=== PATIENT | male | born 1955 | race Caucasian/White ===

== ENCOUNTER 2016-11-15 07:26 | Outpatient (CLI) | payer OTHER | END 2016-11-15 23:59 | DX: I10 Essential (primary) hypertension (principal); M25.562 Pain in left knee; E78.5 Hyperlipidemia, unspecified; F52.21 Male erectile disorder ==

== ENCOUNTER 2017-03-01 07:15 | Outpatient (CLI) | payer OTHER ==
[2017-03-01 13:47] LABS: ALBUMIN/GLOBULIN RATIO 1.4 (1.0-2.2); BILIRUBIN,TOTAL 1.7 mg/dL (0.2-1.0); CALCIUM 8.8 mg/dL (8.5-10.3); CREATININE 0.9 mg/dL (0.6-1.2); POTASSIUM 3.8 mmol/L (3.5-5.0); TOTAL PROTEIN 7.3 g/dL (6.7-8.2)
[2017-03-01 14:20] LABS: HEMOGLOBIN A1C 0.92 g/dL
== END 2017-03-01 07:16 | disposition home or self-care (01) ==
LOC: LAB.WCP 07:15
PROVIDERS: ATTEND Family Medicine
DX: E11.9 Type 2 diabetes mellitus without complications (principal); I10 Essential (primary) hypertension; E78.5 Hyperlipidemia, unspecified; Z12.5 Encounter for screening for malignant neoplasm of prostate
CPT/HCPCS: 36415; 80053; 82043; 83036; 84153

== ENCOUNTER 2017-07-24 14:47 | Outpatient (CLI) | payer BC, OTHER ==
[2017-07-24 12:49] LABS: ALBUMIN/GLOBULIN RATIO 1.2 (1.0-2.2); BILIRUBIN,TOTAL 1.5 mg/dL (0.2-1.0); CALCIUM 9.5 mg/dL (8.5-10.3); CREATININE 0.9 mg/dL (0.6-1.2); POTASSIUM 4.5 mmol/L (3.5-5.0); TOTAL PROTEIN 8.2 g/dL (6.7-8.2)
[2017-07-24 12:56] LABS: HEMOGLOBIN A1C 0.81 g/dL
== END 2017-07-24 14:48 | disposition home or self-care (01) ==
LOC: LAB.WCP 14:47
PROVIDERS: ATTEND Family Medicine
DX: Z00.00 Encounter for general adult medical examination without abnormal findings (principal)
CPT/HCPCS: 36415; 80053; 83036

== ENCOUNTER 2017-10-23 07:27 | Outpatient (CLI) | payer BC, OTHER ==
[2017-10-23 13:56] LABS: ALBUMIN 4.5 g/dL (3.2-5.5); ALBUMIN/GLOBULIN RATIO 1.5 (1.0-2.2); ALKALINE PHOSPHATASE 73 IU/L (42-121); ALT ALANINE AMINOTRANSFERASE 41 IU/L (10-60); AST ASPARTATE AMINOTRANSFERASE 30 IU/L (10-42); BILIRUBIN,TOTAL 1.8 mg/dL (0.2-1.0); BUN - BLOOD UREA NITROGEN 22 mg/dL (6-20); CALCIUM 9.2 mg/dL (8.5-10.3); CARBON DIOXIDE - CO2 26 mmol/L (21-32); CHLORIDE 100 mmol/L (101-111); CHOL/HDL RATIO 5.1 (<5.0); CHOLESTEROL 169 mg/dL; CREATININE 0.8 mg/dL (0.6-1.2); GFR - MDRD 99 (>89); GLUCOSE 150 mg/dL (70-100); HDL CHOLESTEROL 33 mg/dL; SODIUM 137 mmol/L (135-145); TOTAL PROTEIN 7.6 g/dL (6.7-8.2)
[2017-10-23 14:14] LABS: LDL CHOLESTEROL,DIRECT 59 mg/dL; LDLD/HDL RATIO 1.8 (<3.6)
[2017-10-23 15:00] LABS: HB2 TOTAL 15.1 g/dL; HEMOGLOBIN A1C 0.8 g/dL
== END 2017-10-23 07:28 | disposition home or self-care (01) ==
LOC: LAB.WCP 07:27
PROVIDERS: ATTEND Family Medicine
DX: E11.9 Type 2 diabetes mellitus without complications (principal); I10 Essential (primary) hypertension; E78.5 Hyperlipidemia, unspecified; Z12.5 Encounter for screening for malignant neoplasm of prostate
CPT/HCPCS: 36415; 80053; 80061; 83036; 83721; 84153

== ENCOUNTER 2018-01-13 14:43 | Emergency (ER) | payer BC, OTHER ==
[2018-01-13] MEDS ORDERED: BUFFERED LIDOCAINE 10 ML SYRINGE SUBQ STA (14:52)
[2018-01-13] MEDS ORDERED: TETANUS/DIPHTHERIA/PERTUSSIS 0.5 ML SYRINGE IM ONE (14:54)
--- NOTE | 2018-01-13 14:56 | ED Physician Documentation ---
PD HPI UPPER EXT INJURY - Stated complaint Stated Complaint: R FINGER LAC - Chief complaint Chief Complaint: Wound - History obtained from History obtained from: Patient - History of Present Illness Location: Right (Right-handed gentleman with borderline tetanus status cut the tip of his right index finger with a duplex trimmer at home just prior to arrival.) Review of Systems Constitutional: reports: Reviewed and negative Cardiac: reports: Reviewed and negative Respiratory: reports: Reviewed and negative PD PAST MEDICAL HISTORY - Past Medical History Cardiovascular: Hypertension, High cholesterol - Past Surgical History Past Surgical History: Yes - Present Medications Home Medications: Ambulatory Orders Medication Instructions Recorded Confirmed Carvedilol 04/20/13 04/20/13 Rosuvastatin Calcium [Crestor] 04/20/13 04/20/13 metFORMIN [Glucophage] 01/13/18 - Allergies Allergies/Adverse Reactions: Allergies Allergy/AdvReac Type Severity Reaction Status Date / Time No Known Drug Allergies Allergy Verified 04/20/13 11:34 - Social History Does the pt smoke?: Yes Smoking Status: Current every day smoker Does the pt drink ETOH?: Yes Does the pt have substance abuse?: No - Immunizations Immunizations are current?: No Immunizations: TDAP >10years/unknown - POLST Patient has POLST: No PD ED PE NORMAL - Vitals Vital signs reviewed: Yes - General General: Alert and oriented X 3, No acute distress - Extremities Extremities: Other (He basically has a 1 cm flap of skin that is hanging at the tip of the index finger with some nailbed involvement.) - Neuro Neuro: Alert and oriented X 3, Normal speech - Psych Psych: Normal mood, Normal affect Results - Vitals Vitals: Vital Signs - 24 hr 01/13/18 14:46 Temperature 36.7 C Heart Rate 107 H Respiratory 18 Rate Blood Pressure 127/93 H O2 Saturation 95 Oxygen O2 Source Room air Procedures - Laceration (location) R 2nd finger tip Length in cm: 1 Wound type: Curved, Flap Neurovascular status: Sensory intact, Motor intact, Vascular intact Anesthesia: Lidocaine 1%, With bicarb Wound Preparation: Hibiclens, Irrigated copiously NS Skin layer closure: Nylon, Size #-0 - enter number (5-0), Sutures - enter # (5) Other: Tetanus booster given Complexity: Simple Departure - Departure Disposition: 01 Home, Self Care Clinical Impression: Finger laceration Qualifiers: Encounter type: initial encounter Finger: index finger Damage to nail status: with damage Foreign body presence: without foreign body Laterality: right Qualified Code(s): S61.310A - Laceration without foreign body of right index finger with damage to nail, initial encounter Condition: Good Record reviewed to determine appropriate education?: Yes Instructions: ED Laceration Hand Comments: Come back for any signs of infection which would include: Redness, swelling, drainage, increased pain, or fevers. Follow-up with your physician in 14 days for suture removal. Your blood pressure was elevated today on check into the emergency department. This does not mean that you have hypertension, it is a common phenomenon to come to the emergency department and have elevated blood pressure. I recommend that you see your primary care physician within the week to have it rechecked when you are feeling better.
[2018-01-13 16:11] VITALS: BP 127/95
== END 2018-01-13 16:09 | disposition home or self-care (01) ==
LOC: ED 14:43
DX: S61.210A Laceration without foreign body of right index finger without damage to nail, initial encounter (principal); W29.3XXA Contact with powered garden and outdoor hand tools and machinery, initial encounter; Y92.009 Unspecified place in unspecified non-institutional (private) residence as the place of occurrence of the external cause; I10 Essential (primary) hypertension; Z23 Encounter for immunization; E78.00 Pure hypercholesterolemia, unspecified; F17.200 Nicotine dependence, unspecified, uncomplicated
CPT/HCPCS: 12001; 90471; 99282; 99283

== ENCOUNTER 2018-04-06 20:35 | Emergency (ER) | payer BC, OTHER ==
[2018-04-06] MEDS ORDERED: ceFAZolin 1 GM VIAL IM STA (20:54)
--- NOTE | 2018-04-06 20:58 | ED Physician Documentation ---
PD HPI LOWER EXT INJURY - Stated complaint Stated Complaint: RT LEG PX - Chief complaint Chief Complaint: Ext Problem - History obtained from History obtained from: Patient - History of Present Illness PD HPI LOW EXT INJURY LOCATION: Right (62-year-old gentleman with type 2 diabetes on oral medications presents with a days worth of pain to the anterior right puga with redness. The pain is only bad when he takes the first few steps walking and then it is okay. He has had chills last few nights and feeling febrile without measured fevers.) Review of Systems Constitutional: reports: Chills. denies: Fatigue Cardiac: denies: Chest pain / pressure, Palpitations Respiratory: denies: Dyspnea, Cough GI: denies: Abdominal Pain PD PAST MEDICAL HISTORY - Past Medical History Past Medical History: Yes Cardiovascular: Hypertension, High cholesterol Endocrine/Autoimmune: Type 2 diabetes - Past Surgical History Past Surgical History: No - Present Medications Home Medications: Ambulatory Orders Medication Instructions Recorded Confirmed Carvedilol 04/20/13 04/20/13 Rosuvastatin Calcium [Crestor] 04/20/13 04/20/13 metFORMIN [Glucophage] 01/13/18 Cephalexin [Keflex] 500 mg PO QID #40 capsule 04/06/18 - Allergies Allergies/Adverse Reactions: Allergies Allergy/AdvReac Type Severity Reaction Status Date / Time No Known Drug Allergies Allergy Verified 04/06/18 20:43 - Social History Does the pt smoke?: Yes Smoking Status: Current every day smoker Does the pt drink ETOH?: Yes Does the pt have substance abuse?: No - Immunizations Immunizations are current?: No Immunizations: TDAP >10years/unknown - POLST Patient has POLST: No PD ED PE NORMAL - Vitals Vital signs reviewed: Yes - General General: Alert and oriented X 3, No acute distress - Extremities Extremities: Other (He has cellulitis to the anterior right puga measuring about 8 cm x 3 cm with tenderness but no evidence of gas-forming infection, specifically pain is not out of proportion to examination, he is comfortable at rest, there is no crepitance. And he does walk without overt evidence of pain.) - Neuro Neuro: Alert and oriented X 3, Normal speech Results - Vitals Vitals: Vital Signs - 24 hr 04/06/18 20:37 Temperature 36.8 C Heart Rate 114 H Respiratory 18 Rate Blood Pressure 156/98 H O2 Saturation 95 Oxygen O2 Source Room air - Labs Labs: Laboratory Tests 04/06/18 20:42 POC Whole Bld Glucose 260 H PD MEDICAL DECISION MAKING - ED course ED course: 62-year-old gentleman with right leg cellulitis. He is administered 2 g of Ancef in the department and sent home with prescription for Keflex and given signs and symptoms watch out and return for. - Sepsis Event Vital Signs: Vital Signs - 24 hr 04/06/18 20:37 Temperature 36.8 C Heart Rate 114 H Respiratory 18 Rate Blood Pressure 156/98 H O2 Saturation 95 Oxygen O2 Source Room air Departure - Departure Disposition: Home, Self Care Clinical Impression: Cellulitis Qualifiers: Site of cellulitis: extremity Site of cellulitis of extremity: lower extremity Laterality: right Qualified Code(s): L03.115 - Cellulitis of right lower limb Condition: Good Record reviewed to determine appropriate education?: Yes Instructions: Cellulitis Dc Prescriptions: Cephalexin [Keflex] 500 mg PO QID #40 capsule Comments: Return immediately if the redness worsens or if the chills do not go away shortly after the injection of antibiotics. Or if you generally worsen in any way. Follow-up with your doctor early to mid week for recheck otherwise. Your blood pressure was elevated today on check into the emergency department. This does not mean that you have hypertension, it is a common phenomenon to come to the emergency department and have elevated blood pressure. I recommend that you see your primary care physician within the week to have it rechecked when you are feeling better.
[2018-04-06 21:26] VITALS: BP 146/93
== END 2018-04-06 21:31 | disposition home or self-care (01) ==
LOC: ED 20:35
DX: L03.115 Cellulitis of right lower limb (principal); I10 Essential (primary) hypertension; E11.9 Type 2 diabetes mellitus without complications; Z79.84 Long term (current) use of oral hypoglycemic drugs; F17.200 Nicotine dependence, unspecified, uncomplicated
CPT/HCPCS: 96372; 99283

== ENCOUNTER 2019-03-10 08:05 | Outpatient (CLI) | payer BC, OTHER ==
[2019-03-10 11:59] LABS: BASOPHILS % (AUTO) 0.8 %; EOSINOPHILS # (AUTO) 0.2 10^3/uL (0.0-0.7); EOSINOPHILS % (AUTO) 3.5 %; HGB - HEMOGLOBIN 14.4 g/dL (14.0-18.0); LYMPHOCYTES # (AUTO) 1.6 10^3/uL (1.5-3.5); LYMPHOCYTES % (AUTO) 30.3 %; MEAN CORPUSCULAR HEMOGLOBIN 29.5 pg (27.0-31.0); MEAN CORPUSCULAR HGB CONC 33.5 g/dL (32.0-36.0); MEAN CORPUSCULAR VOLUME 88.1 fL (80.0-94.0); MEAN PLATELET VOLUME 10.4 fL (7.4-11.4); MONOCYTES # (AUTO) 0.4 10^3/uL (0.0-1.0); MONOCYTES % (AUTO) 7.5 %; NEUTROPHILS % (AUTO) 57.7 %; PLT - PLATELET COUNT 266 10^3/uL (130-450); RED BLOOD COUNT 4.88 10^6/uL (4.70-6.10); RED CELL DISTRIBUTION WIDTH 12.1 % (12.0-15.0); WHITE BLOOD COUNT 5.2 x10^3/uL (4.8-10.8)
[2019-03-10 12:26] LABS: CREATININE,URINE 151.9 mg/dL; MICROALBUM/CREATININE RATIO,UR 120.5 ug/mg (<30.0); MICROALBUMIN,URINE 18.3 mg/dL (0-300.0)
[2019-03-10 12:31] LABS: HB2 TOTAL 14.5 g/dL; HEMOGLOBIN A1C 2.08 g/dL; HEMOGLOBIN A1C % 15.3 % (4.6-6.2)
[2019-03-10 12:44] LABS: ALBUMIN 4.3 g/dL (3.2-5.5); ALBUMIN/GLOBULIN RATIO 1.3 (1.0-2.2); ALKALINE PHOSPHATASE 81 IU/L (42-121); ALT ALANINE AMINOTRANSFERASE 39 IU/L (10-60); AST ASPARTATE AMINOTRANSFERASE 29 IU/L (10-42); BILIRUBIN,TOTAL 2.5 mg/dL (0.2-1.0); BUN - BLOOD UREA NITROGEN 17 mg/dL (6-20); CALCIUM 9.5 mg/dL (8.5-10.3); CARBON DIOXIDE - CO2 27 mmol/L (21-32); CHLORIDE 95 mmol/L (101-111); CHOLESTEROL 148 mg/dL; CREATININE 0.8 mg/dL (0.6-1.2); GFR - MDRD 98 (>89); GLUCOSE 299 mg/dL (70-100); HDL CHOLESTEROL 37 mg/dL; LDL CHOLESTEROL,CALCULATED 55 mg/dL; LDL/HDL RATIO 1.5 (<3.6); SODIUM 135 mmol/L (135-145); TOTAL PROTEIN 7.7 g/dL (6.7-8.2); VLDL CHOLESTEROL 56 mg/dL
== END 2019-03-10 08:06 | disposition home or self-care (01) ==
LOC: LAB.WCP 08:05
PROVIDERS: ATTEND Physician Assistant Medical
DX: I10 Essential (primary) hypertension (principal); E78.5 Hyperlipidemia, unspecified; E11.9 Type 2 diabetes mellitus without complications; Z12.5 Encounter for screening for malignant neoplasm of prostate
CPT/HCPCS: 36415; 80053; 80061; 82043; 82570; 83036; 83721; 84153; 84443; 85025

== ENCOUNTER 2019-04-07 07:33 | Outpatient (CLI) | payer BC, OTHER ==
[2019-04-07 12:33] LABS: ALBUMIN 4.4 g/dL (3.2-5.5); ALBUMIN/GLOBULIN RATIO 1.3 (1.0-2.2); BILIRUBIN,TOTAL 1.8 mg/dL (0.2-1.0); CREATININE 0.8 mg/dL (0.6-1.2); TOTAL PROTEIN 7.8 g/dL (6.7-8.2)
== END 2019-04-07 23:59 | disposition home or self-care (01) ==
LOC: LAB.WCP 07:33
PROVIDERS: ATTEND Physician Assistant
DX: I10 Essential (primary) hypertension (principal)
CPT/HCPCS: 36415; 80053

== ENCOUNTER 2019-05-06 09:44 | Outpatient (CLI) | payer BC, OTHER ==
[2019-05-06 12:54] LABS: CALCIUM 9.6 mg/dL (8.5-10.3); CREATININE 0.8 mg/dL (0.6-1.2)
[2019-05-06 13:05] LABS: HB2 TOTAL 14.3 g/dL; HEMOGLOBIN A1C 1.35 g/dL; HEMOGLOBIN A1C % 10.8 % (4.6-6.2)
== END 2019-05-06 23:59 | disposition home or self-care (01) ==
LOC: LAB.WCP 09:44
PROVIDERS: ATTEND Family Medicine
DX: E11.9 Type 2 diabetes mellitus without complications (principal)
CPT/HCPCS: 36415; 80048; 83036

== ENCOUNTER 2019-08-04 08:00 | Outpatient (CLI) | payer BC, OTHER ==
[2019-08-04 12:43] LABS: MICROALBUM/CREATININE RATIO,UR 127.2 ug/mg (<30.0); MICROALBUMIN,URINE 28.5 mg/dL (0-300.0)
[2019-08-04 12:48] LABS: HEMOGLOBIN A1C 0.69 g/dL; HEMOGLOBIN A1C % 6.7 % (4.6-6.2)
[2019-08-04 12:55] LABS: ALBUMIN 4.5 g/dL (3.2-5.5); ALBUMIN/GLOBULIN RATIO 1.4 (1.0-2.2); BILIRUBIN,TOTAL 1.4 mg/dL (0.2-1.0); CALCIUM 9.5 mg/dL (8.5-10.3); TOTAL PROTEIN 7.7 g/dL (6.7-8.2)
== END 2019-08-04 23:59 | disposition home or self-care (01) ==
LOC: LAB.WCP 08:00
PROVIDERS: ATTEND Family Medicine
DX: E11.9 Type 2 diabetes mellitus without complications (principal); I10 Essential (primary) hypertension
CPT/HCPCS: 36415; 80053; 82043; 82570; 83036

== ENCOUNTER 2019-10-13 05:48 | Day surgery (SDC) | payer OTHER ==
[2019-10-13] MEDS ORDERED: LACTATED RINGERS 1,000 ML IV ONE (06:15)
[2019-10-13] MEDS ORDERED: MIDAZOLAM 2 MG/2 ML VIAL IVP ONE ×2 (07:37→08:28)
[2019-10-13] MEDS ORDERED: fentaNYL 250 MCG/5 ML VIAL IVP ONE ×2 (07:37→08:28)
[2019-10-13 08:35] VITALS: BP 115/74
== END 2019-10-13 05:49 | disposition home or self-care (01) ==
LOC: SDS 05:48
PROVIDERS: ATTEND Internal Medicine Gastroenterology
PROC: 0DBN8ZZ Excision of Sigmoid Colon, Via Natural or Artificial Opening Endoscopic (ICD-10-PCS; principal; 2019-10-13 07:30)
DX: Z12.11 Encounter for screening for malignant neoplasm of colon (principal); K63.9 Disease of intestine, unspecified; K57.30 Diverticulosis of large intestine without perforation or abscess without bleeding; Z01.810 Encounter for preprocedural cardiovascular examination; E11.40 Type 2 diabetes mellitus with diabetic neuropathy, unspecified; I10 Essential (primary) hypertension; M17.12 Unilateral primary osteoarthritis, left knee; F43.21 Adjustment disorder with depressed mood; Z79.84 Long term (current) use of oral hypoglycemic drugs; Z79.82 Long term (current) use of aspirin
CPT/HCPCS: 45380; 93005; J3010; J7120

== ENCOUNTER 2019-12-05 08:00 | Outpatient (CLI) | payer OTHER ==
[2019-12-05 16:58] LABS: CALCIUM 9.7 mg/dL (8.5-10.3); CREATININE 0.9 mg/dL (0.6-1.2)
[2019-12-05 17:11] LABS: HB2 TOTAL 15.1 g/dL; HEMOGLOBIN A1C 0.72 g/dL; HEMOGLOBIN A1C % 6.5 % (4.6-6.2)
== END 2019-12-05 23:59 | disposition home or self-care (01) ==
LOC: LAB.WCP 08:00
PROVIDERS: ATTEND Physician Assistant Medical
DX: E11.21 Type 2 diabetes mellitus with diabetic nephropathy (principal); I10 Essential (primary) hypertension; E78.5 Hyperlipidemia, unspecified
CPT/HCPCS: 36415; 80048; 82043; 82570; 83036

== ENCOUNTER 2019-12-16 09:52 | Outpatient (CLI) | payer OTHER ==
[2019-12-16 12:43] LABS: CREATININE,URINE 84.5 mg/dL; MICROALBUM/CREATININE RATIO,UR 47.3 ug/mg (<30.0)
== END 2019-12-16 23:59 | disposition home or self-care (01) ==
LOC: LAB.WCP 09:52
PROVIDERS: ATTEND Physician Assistant Medical
DX: E11.21 Type 2 diabetes mellitus with diabetic nephropathy (principal); I10 Essential (primary) hypertension; E78.5 Hyperlipidemia, unspecified
CPT/HCPCS: 82043; 82570

== ENCOUNTER 2020-09-11 10:43 | Outpatient (CLI) | payer OTHER ==
[2020-09-11 13:47] LABS: BASOPHILS # (AUTO) 0.1 10^3/uL (0.0-0.1); EOSINOPHILS # (AUTO) 0.3 10^3/uL (0.0-0.7); EOSINOPHILS % (AUTO) 4.3 %; HGB - HEMOGLOBIN 13.9 g/dL (14.0-18.0); LYMPHOCYTES # (AUTO) 1.6 10^3/uL (1.5-3.5); MEAN CORPUSCULAR HEMOGLOBIN 29.1 pg (27.0-31.0); MEAN CORPUSCULAR HGB CONC 33.2 g/dL (32.0-36.0); MEAN CORPUSCULAR VOLUME 87.7 fL (80.0-94.0); MEAN PLATELET VOLUME 10.7 fL (7.4-11.4); MONOCYTES # (AUTO) 0.6 10^3/uL (0.0-1.0); MONOCYTES % (AUTO) 9.5 %; NEUTROPHILS # (AUTO) 3.7 10^3/uL (1.5-6.6); PLT - PLATELET COUNT 311 10^3/uL (130-450); RED BLOOD COUNT 4.78 10^6/uL (4.70-6.10); RED CELL DISTRIBUTION WIDTH 12.6 % (12.0-15.0); WHITE BLOOD COUNT 6.3 x10^3/uL (4.8-10.8)
[2020-09-11 13:59] LABS: ALBUMIN 4.5 g/dL (3.2-5.5); ALBUMIN/GLOBULIN RATIO 1.3 (1.0-2.2); ALKALINE PHOSPHATASE 106 IU/L (42-121); ALT ALANINE AMINOTRANSFERASE 48 IU/L (10-60); AST ASPARTATE AMINOTRANSFERASE 34 IU/L (10-42); BILIRUBIN,TOTAL 1.6 mg/dL (0.2-1.0); BUN - BLOOD UREA NITROGEN 18 mg/dL (6-20); CALCIUM 9.5 mg/dL (8.5-10.3); CARBON DIOXIDE - CO2 28 mmol/L (21-32); CHLORIDE 97 mmol/L (101-111); CHOL/HDL RATIO 4.9 (<5.0); CHOLESTEROL 173 mg/dL; CREATININE 0.9 mg/dL (0.6-1.2); GLUCOSE 216 mg/dL (70-100); HDL CHOLESTEROL 35 mg/dL; SODIUM 136 mmol/L (135-145); TOTAL PROTEIN 8.1 g/dL (6.7-8.2)
[2020-09-11 14:03] LABS: CREATININE,URINE 177.8 mg/dL; MICROALBUM/CREATININE RATIO,UR 91.7 ug/mg (<30.0); MICROALBUMIN,URINE 16.3 mg/dL (0-300.0)
[2020-09-11 14:18] LABS: LDL CHOLESTEROL,DIRECT 57 mg/dL; LDLD/HDL RATIO 1.6 (<3.6)
[2020-09-11 20:10] LABS: HEMOGLOBIN A1c% 8.5 % (4.27-6.07)
== END 2020-09-11 10:44 | disposition home or self-care (01) ==
LOC: LAB.N 10:43
PROVIDERS: ATTEND Family Medicine
DX: E11.9 Type 2 diabetes mellitus without complications (principal); I10 Essential (primary) hypertension; E78.5 Hyperlipidemia, unspecified; Z12.5 Encounter for screening for malignant neoplasm of prostate
CPT/HCPCS: 36415; 80053; 80061; 82043; 82570; 83036; 83721; 84153; 84443; 85025

== ENCOUNTER 2020-12-04 12:50 | Emergency (ER) | payer OTHER ==
[2020-12-04] MEDS ORDERED: ONDANSETRON 4 MG/2 ML VIAL IVP STA (13:27)
[2020-12-04] MEDS ORDERED: KETOROLAC 30 MG/ML VIAL IVP STA (13:27)
[2020-12-04] MEDS ORDERED: MORPHINE 2 MG/ML CARPUJECT IVP STA (13:27)
[2020-12-04 13:32] LABS: BASOPHILS % (AUTO) 0.4 %; EOSINOPHILS # (AUTO) 0.2 10^3/uL (0.0-0.7); EOSINOPHILS % (AUTO) 2.1 %; HCT - HEMATOCRIT 41.9 % (42.0-52.0); HGB - HEMOGLOBIN 14.3 g/dL (14.0-18.0); LYMPHOCYTES # (AUTO) 2.3 10^3/uL (1.5-3.5); LYMPHOCYTES % (AUTO) 27.6 %; MEAN CORPUSCULAR HEMOGLOBIN 29.1 pg (27.0-31.0); MEAN CORPUSCULAR HGB CONC 34.1 g/dL (32.0-36.0); MEAN CORPUSCULAR VOLUME 85.3 fL (80.0-94.0); MEAN PLATELET VOLUME 10.4 fL (7.4-11.4); MONOCYTES # (AUTO) 0.7 10^3/uL (0.0-1.0); MONOCYTES % (AUTO) 8.2 %; NEUTROPHILS # (AUTO) 5.1 10^3/uL (1.5-6.6); NEUTROPHILS % (AUTO) 61.6 %; PLT - PLATELET COUNT 321 10^3/uL (130-450); RED BLOOD COUNT 4.91 10^6/uL (4.70-6.10); RED CELL DISTRIBUTION WIDTH 12.9 % (12.0-15.0); WHITE BLOOD COUNT 8.2 x10^3/uL (4.8-10.8)
[2020-12-04] MEDS ORDERED: IOPAMIDOL-300 100 ML VIAL ONE (13:32)
[2020-12-04 13:35] LABS: ALBUMIN 4.5 g/dL (3.2-5.5); ALBUMIN/GLOBULIN RATIO 1.3 (1.0-2.2); BILIRUBIN,TOTAL 2.5 mg/dL (0.2-1.0); CREATININE 1.1 mg/dL (0.6-1.2); POTASSIUM 3.9 mmol/L (3.5-5.0)
--- NOTE | 2020-12-04 13:58 | ED Physician Documentation ---
PD HPI ABD PAIN - Stated complaint Stated Complaint: ABD PX - Chief complaint Chief Complaint: Abd Pain - History obtained from History obtained from: Patient - History of Present Illness Timing - onset: How many days ago (2) Timing - duration: Days (2) Timing - details: Gradual onset, Waxing and waning Pain level max: 9 Pain level now: 9 Quality: Aching, Sharp Associated symptoms: Nausea, Vomiting. No: Fever, Hematemesis, Diarrhea, Constipation, Melena, Hematochezia, Dysuria, Hematuria Recently seen: Not recently seen - Additional information Additional information: 64-year-old male presents to the emergency department with abdominal pain for the past 2 days. States it is in the left lower quadrant. Rates it as a 9 out of 10. Described as aching and sharp. Nothing makes it better or worse. No fevers. Has had nausea and vomiting secondary to pain. No blood in the stool. No diarrhea. No constipation. Has never had similar symptoms previously. No urinary symptoms. Review of Systems Constitutional: denies: Fever, Chills Respiratory: denies: Cough GI: reports: Vomiting Skin: denies: Rash Musculoskeletal: denies: Neck pain, Back pain Neurologic: denies: Headache PD PAST MEDICAL HISTORY - Past Medical History Past Medical History: Yes Cardiovascular: Hypertension, High cholesterol Respiratory: None Endocrine/Autoimmune: Type 2 diabetes GI: Other : None HEENT: None Psych: None Musculoskeletal: Osteoarthritis Derm: None - Past Surgical History Past Surgical History: Yes General: Colonoscopy - Present Medications Home Medications: Ambulatory Orders Medication Instructions Recorded Confirmed Rosuvastatin Calcium [Crestor] 40 mg PO DAILY 04/20/13 12/04/20 metFORMIN [Glucophage] 1,500 mg PO DAILY 01/13/18 12/04/20 Exenatide Microspheres [Bydureon 2 mg SQ OAW 10/13/19 12/04/20 Pen] Ibuprofen [Motrin] 800 mg PO Q8H PRN #30 tablet 12/04/20 Ondansetron Odt [Zofran] 4 mg TL Q6H PRN #10 tablet 12/04/20 Oxycodone HCl/Acetaminophen 1 - 2 each PO Q6H PRN #14 tablet 12/04/20 [Percocet 5-325 mg Tablet] - Allergies Allergies/Adverse Reactions: Allergies Allergy/AdvReac Type Severity Reaction Status Date / Time No Known Drug Allergies Allergy Verified 12/04/20 12:55 - Social History Does the pt smoke?: No Smoking Status: Never smoker Does the pt drink ETOH?: No Does the pt have substance abuse?: No - Immunizations Immunizations are current?: Yes Immunizations: TDAP >10years/unknown - POLST Patient has POLST: No PD ED PE NORMAL - Vitals Vital signs reviewed: Yes - General General: Alert and oriented X 3, No acute distress - HEENT HEENT: Moist mucous membranes - Neck Neck: Supple, no meningeal sign - Cardiac Cardiac: RRR - Respiratory Respiratory: No respiratory distress, Clear bilaterally - Abdomen Abdomen: Soft, Non tender, Non distended - Back Back: No CVA TTP, No spinal TTP - Derm Derm: Warm and dry - Extremities Extremities: No edema, No calf tenderness / cord - Neuro Neuro: Alert and oriented X 3 - Psych Psych: Normal mood, Normal affect Results - Vitals Vitals: Vital Signs - 24 hr 12/04/20 12/04/20 12/04/20 12:55 13:19 13:43 Temperature 36.5 C Heart Rate 90 103 H 101 H Respiratory 16 18 22 Rate Blood Pressure 150/90 H 125/89 H 154/106 H O2 Saturation 96 95 99 12/04/20 12/04/20 14:19 15:59 Temperature 36.4 C L Heart Rate 99 114 H Respiratory 16 16 Rate Blood Pressure 144/78 H 120/91 H O2 Saturation 98 94 Oxygen O2 Source Room air - Labs Labs: Laboratory Tests 12/04/20 12/04/20 12/04/20 13:10 13:10 15:05 WBC 8.2 RBC 4.91 Hgb 14.3 Hct 41.9 L MCV 85.3 MCH 29.1 MCHC 34.1 RDW 12.9 Plt Count 321 MPV 10.4 Neut # (Auto) 5.1 Lymph # (Auto) 2.3 [place] # (Auto) 0.7 Eos # (Auto) 0.2 Baso # (Auto) 0.0 Absolute Nucleated RBC 0.00 Nucleated RBC % 0.0 Sodium 135 Potassium 3.9 Chloride 97 L Carbon Dioxide 25 Anion Gap 13.0 BUN 29 H Creatinine 1.1 Estimated GFR (MDRD) 68 L Glucose 291 H Calcium 10.0 Total Bilirubin 2.5 H AST 32 ALT 43 Alkaline Phosphatase 92 Total Protein 8.0 Albumin 4.5 Globulin 3.5 Albumin/Globulin Ratio 1.3 Lipase 40 Urine Color YELLOW Urine Clarity HAZY Urine pH 6.0 Ur Specific [place] 1.020 Urine Protein 30 H Urine Glucose (UA) 500 H Urine Ketones 15 H Urine Occult Blood LARGE H Urine Nitrite NEGATIVE Urine Bilirubin NEGATIVE Urine Urobilinogen 0.2 (NORMAL) Ur Leukocyte Esterase NEGATIVE Urine RBC TNTC H Urine WBC 0-3 Ur Squamous Epith Cells RARE Squamous Urine Bacteria Rare Urine Mucus Few Strands Ur Microscopic Review INDICATED Urine Culture Comments NOT INDICATED - Rads (name of study) CT abd/pelvis Radiology: Prelim report reviewed, EMP read contemporaneously, See rad report PD MEDICAL DECISION MAKING - ED course Complexity details: reviewed results, re-evaluated patient, considered differential, d/w patient ED course: 64-year-old male with a 3 mm obstructing stone at the left UVJ. Pain well controlled in the emergency department. No evidence of UTI. No fevers. Tolerating p.o. without difficulty. Will provide supportive care and have him follow-up with his doctor. Patient counseled regarding signs and symptoms for which I believe and urgent re-evaluation would be necessary. Patient with good understanding of and agreement to plan and is comfortable going home at this time This document was made in part using voice recognition software. While efforts are made to proofread this document, sound alike and grammatical errors may occur. CT scan results: 3 mm obstructing stone at the left ureterovesicular junction, with associated left-sided hydronephrosis and hydroureter. 1 mm nonobstructing stone at the inferior pole of the right kidney. Minimal sigmoid diverticulosis is seen, without findings of active diverticulitis. Departure - Departure Disposition: 01 Home, Self Care Clinical Impression: Ureteral calculus, left Condition: Good Instructions: ED Stone Renal W Colic Follow-Up: your,doctor in 1 week [Other] Prescriptions: Ibuprofen [Motrin] 800 mg PO Q8H PRN #30 tablet PRN Reason: PAIN &/OR FEVER Oxycodone HCl/Acetaminophen [Percocet 5-325 mg Tablet] 1 - 2 each PO Q6H PRN #14 tablet PRN Reason: pain Ondansetron Odt [Zofran] 4 mg TL Q6H PRN #10 tablet PRN Reason: Nausea / Vomiting Comments: Use the medication as needed for pain. The Motrin will help to stop the spasming of the ureter, the oxycodone will be for breakthrough pain. This is a 3 mm stone and should pass. Return for uncontrolled pain, vomiting and/or fevers. Do not drink alcohol or drive while on narcotic pain medicine. Note that many narcotic pain relievers also contain tylenol/acetaminophen. Please ensure that your total dose of acetaminophen from all sources does not exceed 3 grams (3000mg) per day. You may constipated on this medication, take a stool softener such as "Colace" t wice a day while you are on it. Also recommend a tipv-uqs-ugwqril laxative such as senna or MiraLAX any day that you do not have a bowel movement. If you received narcotic pain medication in the emergency department, do not drive or operate machinery for the next [address] scan results: 3 mm obstructing stone at the left ureterovesicular junction, with associated left-sided hydronephrosis and hydroureter. 1 mm nonobstructing stone at the inferior pole of the right kidney. Minimal sigmoid diverticulosis is seen, without findings of active diverticulitis. Discharge Date/Time: 12/04/20 16:13
[2020-12-04] MEDS ORDERED: SODIUM CHLORIDE 0.9% 1,000 ML IV STA (14:14)
[2020-12-04] MEDS ORDERED: IOPAMIDOL-300 100 ML VIAL IVP ONE (14:23)
--- OUTSIDE RECORDS SUMMARY | 2020-12-04 14:34 | EXTERNAL MEDICAL SUMMARY RPT | Continuity of Care Document ---
:1955 Demographics Phone Unavailable Preferred Language Unknown Marital Status Unknown Pent[employer]ism Affiliation Unknown Race Unknown Ethnic Group Unknown Author Organization [place] Address [address] [phone] Phone Social History date description facility [id number]
--- NOTE | 2020-12-04 14:49 | CT Report ---
PROCEDURE: Abdomen/Pelvis W INDICATIONS: LLQ abd pain CONTRAST: IV CONTRAST: Isovue 300 ml: 100 PO CONTRAST: *NO PO CONTRAST TECHNIQUE: After the administration of nonionic IV contrast, 5 mm thick sections acquired from the diaphragms to the symphysis. 5 mm thick coronal and sagittal reformats were acquired. For radiation dose reducti on, the following was used: automated exposure control, adjustment of mA and/or kV according to basilio ent size. COMPARISON: None. FINDINGS: Image quality: Excellent. ABDOMEN: Lung bases: Lung bases are clear. Heart size is normal. Solid organs: Liver and spleen are normal in size and enhancement. Diffuse fatty liver infiltration can be seen. Gallbladder wall does not appear thickened. Biliary system is non dilated. Pancre as enhances normally. No adrenal nodules. There is an obstructing stone seen at the left ureterovesicular junction, as on series 3 image 92, wh ich measures 3 mm. There is associated moderate left-sided hydroureter and hydronephrosis. No right-s ided hydronephrosis can be seen. There is a 1 mm nonobstructing stone of the inferior pole of the rig ht kidney. The kidneys demonstrate normal size. Along the posterior aspect of the right kidney, there is a water density cyst seen that measures 1.6 cm. Peritoneum and bowel: Bowel loops demonstrate normal wall thickness and caliber. No free fluid or a ir. Minimal sigmoid diverticulosis is seen. No findings of active diverticulitis can be seen. Nodes and vessels: No retroperitoneal or mesenteric adenopathy by size criteria. Aorta and inferior vena cava are normal in size. Miscellaneous: No ventral hernias. PELVIS: Genitourinary: Bladder wall thickness is normal. Miscellaneous: No inguinal adenopathy. Bilateral fat-containing inguinal hernias are seen. Bones: No suspicious bony lesions. No vertebral body compression fractures. IMPRESSION: 3 mm obstructing stone at the left ureterovesicular junction, with associated left-sided hydronephros is and hydroureter. 1 mm nonobstructing stone at the inferior pole of the right kidney. Minimal sigmoid diverticulosis is seen, without findings of active diverticulitis. Incidental note is made of: Bilateral fat-containing inguinal hernias Reviewed by: Ankit Albarran MD on 12/04/2020 1:48 PM AKDT Approved by: Ankit Albarran MD on 12/04/2020 1:48 PM TIARA Station ID: [id number]
[2020-12-04] MEDS ORDERED: PROMETHAZINE INJ 25 MG in SODIUM CHLORIDE 0.9% 50 ML IV STA (15:04)
[2020-12-04 15:17] LABS: BILIRUBIN,URINE NEGATIVE (NEGATIVE); GLUCOSE, URINE (UA) 500 mg/dL (NEGATIVE); KETONES,URINE (UA) 15 mg/dL (NEGATIVE); LEUKOCYTE ESTERASE, URINE NEGATIVE (NEGATIVE); NITRITE,URINE NEGATIVE (NEGATIVE); OCCULT BLOOD,URINE LARGE (NEGATIVE); PROTEIN,URINE 30 mg/dL (NEGATIVE); UROBILINOGEN,URINE 0.2 (NORMAL) E.U./dL (NORMAL)
[2020-12-04 15:22] LABS: CLARITY,URINE HAZY (CLEAR)
[2020-12-04 15:29] LABS: BACTERIA,URINE Rare /HPF (None Seen); MUCUS,URINE Few Strands; RBC,URINE TNTC /HPF (0-5); SQUAMOUS EPITHELIAL CELL,UR RARE Squamous (<= Few); WBC,URINE 0-3 /HPF (0-3)
[2020-12-04 16:00] VITALS: BP 120/91
== END 2020-12-04 16:13 | disposition home or self-care (01) ==
LOC: ED 12:50
DX: N13.2 Hydronephrosis with renal and ureteral calculous obstruction (principal); I10 Essential (primary) hypertension; E11.9 Type 2 diabetes mellitus without complications; Z79.84 Long term (current) use of oral hypoglycemic drugs
CPT/HCPCS: 36415; 74177; 80053; 81001; 83690; 85025; 96365; 96375; 99284; J7040; Q9967; 81003; 87086

== ENCOUNTER 2021-03-01 08:00 | Outpatient (CLI) | payer OTHER ==
[2021-03-01 14:43] LABS: ALBUMIN 4.5 g/dL (3.2-5.5); ALBUMIN/GLOBULIN RATIO 1.3 (1.0-2.2); ALKALINE PHOSPHATASE 83 IU/L (42-121); ALT ALANINE AMINOTRANSFERASE 40 IU/L (10-60); AST ASPARTATE AMINOTRANSFERASE 27 IU/L (10-42); BILIRUBIN,TOTAL 2.4 mg/dL (0.2-1.0); BUN - BLOOD UREA NITROGEN 20 mg/dL (6-20); CALCIUM 9.2 mg/dL (8.5-10.3); CARBON DIOXIDE - CO2 27 mmol/L (21-32); CHLORIDE 101 mmol/L (101-111); CHOL/HDL RATIO 3.8 (<5.0); CHOLESTEROL 123 mg/dL; CREATININE 0.9 mg/dL (0.6-1.2); GFR - MDRD 85 (>89); GLUCOSE 194 mg/dL (70-100); HDL CHOLESTEROL 32 mg/dL; LDL CHOLESTEROL,CALCULATED 29 mg/dL; LDL/HDL RATIO 0.9 (<3.6); POTASSIUM 4.1 mmol/L (3.5-5.0); SODIUM 133 mmol/L (135-145); TOTAL PROTEIN 8.1 g/dL (6.7-8.2); TRIGLYCERIDES 309 mg/dL; VLDL CHOLESTEROL 62 mg/dL
[2021-03-01 17:05] LABS: ESTIMATED AVERAGE GLUCOSE 263 mg/dL (70-100); HEMOGLOBIN A1c% 10.8 % (4.27-6.07)
== END 2021-03-01 23:59 | disposition home or self-care (01) ==
LOC: LAB.WCP 08:00
PROVIDERS: ATTEND Internal Medicine
DX: E11.9 Type 2 diabetes mellitus without complications (principal); E78.5 Hyperlipidemia, unspecified
CPT/HCPCS: 36415; 80053; 80061; 83036; 83721

== ENCOUNTER 2021-08-30 08:00 | Outpatient (CLI) | payer OTHER ==
[2021-08-30 12:07] LABS: CREATININE,URINE 127.1 mg/dL; MICROALBUM/CREATININE RATIO,UR 91.3 ug/mg (<30.0); MICROALBUMIN,URINE 11.6 mg/dL (0-300.0)
[2021-08-30 12:12] LABS: CALCIUM 9.2 mg/dL (8.5-10.3); CREATININE 0.8 mg/dL (0.6-1.2); POTASSIUM 4.3 mmol/L (3.5-5.0)
[2021-08-30 12:40] LABS: ESTIMATED AVERAGE GLUCOSE 301 mg/dL (70-100); HEMOGLOBIN A1c% 12.1 % (4.27-6.07)
== END 2021-08-30 23:59 | disposition home or self-care (01) ==
LOC: LAB.WCP 08:00
PROVIDERS: ATTEND Family Medicine
DX: E11.9 Type 2 diabetes mellitus without complications (principal); I10 Essential (primary) hypertension
CPT/HCPCS: 36415; 80048; 82043; 82570; 83036

== ENCOUNTER 2021-11-23 07:23 | Outpatient (CLI) | payer OTHER ==
[2021-11-23 12:16] LABS: ALBUMIN 4.1 g/dL (3.2-5.5); ALBUMIN/GLOBULIN RATIO 1.1 (1.0-2.2); ALKALINE PHOSPHATASE 117 IU/L (42-121); ALT ALANINE AMINOTRANSFERASE 33 IU/L (10-60); AST ASPARTATE AMINOTRANSFERASE 28 IU/L (10-42); BILIRUBIN,TOTAL 1.8 mg/dL (0.2-1.0); BUN - BLOOD UREA NITROGEN 19 mg/dL (6-20); CARBON DIOXIDE - CO2 28 mmol/L (21-32); CHLORIDE 95 mmol/L (101-111); CHOL/HDL RATIO 5.1 (<5.0); CHOLESTEROL 169 mg/dL; CREATININE 0.9 mg/dL (0.6-1.2); GFR - MDRD 85 (>89); GLUCOSE 327 mg/dL (70-100); HDL CHOLESTEROL 33 mg/dL; POTASSIUM 4.7 mmol/L (3.5-5.0); SODIUM 131 mmol/L (135-145); TOTAL PROTEIN 7.7 g/dL (6.7-8.2); TRIGLYCERIDES 436 mg/dL
[2021-11-23 12:18] LABS: BASOPHILS # (AUTO) 0.1 10^3/uL (0.0-0.1); BASOPHILS % (AUTO) 0.9 %; EOSINOPHILS # (AUTO) 0.2 10^3/uL (0.0-0.7); EOSINOPHILS % (AUTO) 4.2 %; HCT - HEMATOCRIT 41.8 % (42.0-52.0); HGB - HEMOGLOBIN 14.2 g/dL (14.0-18.0); LYMPHOCYTES # (AUTO) 1.3 10^3/uL (1.5-3.5); LYMPHOCYTES % (AUTO) 23.2 %; MEAN CORPUSCULAR HEMOGLOBIN 29.2 pg (27.0-31.0); MEAN CORPUSCULAR VOLUME 85.8 fL (80.0-94.0); MEAN PLATELET VOLUME 10.8 fL (7.4-11.4); MONOCYTES # (AUTO) 0.7 10^3/uL (0.0-1.0); MONOCYTES % (AUTO) 11.8 %; NEUTROPHILS # (AUTO) 3.3 10^3/uL (1.5-6.6); NEUTROPHILS % (AUTO) 59.7 %; PLT - PLATELET COUNT 238 10^3/uL (130-450); RED BLOOD COUNT 4.87 10^6/uL (4.70-6.10); WHITE BLOOD COUNT 5.5 x10^3/uL (4.8-10.8)
[2021-11-23 12:23] LABS: THYROID STIMULATING HORMONE 2.54 uIU/mL (0.34-5.60)
[2021-11-23 12:27] LABS: ESTIMATED AVERAGE GLUCOSE 352 mg/dL (70-100); HEMOGLOBIN A1c% 13.9 % (4.27-6.07)
[2021-11-23 12:36] LABS: CREATININE,URINE 75.7 mg/dL; MICROALBUM/CREATININE RATIO,UR 95.1 ug/mg (<30.0); MICROALBUMIN,URINE 7.2 mg/dL (0-300.0)
[2021-11-23 12:44] LABS: LDL CHOLESTEROL,DIRECT 56 mg/dL; LDLD/HDL RATIO 1.7 (<3.6)
== END 2021-11-23 07:24 | disposition home or self-care (01) ==
LOC: LAB.N 07:23
PROVIDERS: ATTEND Family Medicine
DX: I10 Essential (primary) hypertension (principal); E66.9 Obesity, unspecified; E11.21 Type 2 diabetes mellitus with diabetic nephropathy; K30 Functional dyspepsia
CPT/HCPCS: 36415; 80053; 80061; 82043; 82570; 83036; 83721; 84443; 85025

== ENCOUNTER 2021-12-19 12:40 | Emergency (ER) | payer OTHER ==
[2021-12-19 13:28] LABS: BASOPHILS # (AUTO) 0.1 10^3/uL (0.0-0.1); BASOPHILS % (AUTO) 0.4 %; EOSINOPHILS % (AUTO) 0.2 %; HCT - HEMATOCRIT 42.5 % (42.0-52.0); HGB - HEMOGLOBIN 14.6 g/dL (14.0-18.0); LYMPHOCYTES % (AUTO) 8.3 %; MEAN CORPUSCULAR HEMOGLOBIN 29.3 pg (27.0-31.0); MEAN CORPUSCULAR HGB CONC 34.4 g/dL (32.0-36.0); MEAN CORPUSCULAR VOLUME 85.2 fL (80.0-94.0); MEAN PLATELET VOLUME 9.8 fL (7.4-11.4); MONOCYTES # (AUTO) 0.6 10^3/uL (0.0-1.0); MONOCYTES % (AUTO) 4.7 %; NEUTROPHILS # (AUTO) 10.7 10^3/uL (1.5-6.6); NEUTROPHILS % (AUTO) 85.7 %; PLT - PLATELET COUNT 267 10^3/uL (130-450); RED BLOOD COUNT 4.99 10^6/uL (4.70-6.10); RED CELL DISTRIBUTION WIDTH 12.2 % (12.0-15.0); WHITE BLOOD COUNT 12.5 x10^3/uL (4.8-10.8)
[2021-12-19 13:43] LABS: ALBUMIN 4.6 g/dL (3.2-5.5); ALBUMIN/GLOBULIN RATIO 1.3 (1.0-2.2); BILIRUBIN,TOTAL 1.9 mg/dL (0.2-1.0); CALCIUM 9.7 mg/dL (8.5-10.3); CREATININE 1.3 mg/dL (0.6-1.2); POTASSIUM 3.9 mmol/L (3.5-5.0); TOTAL PROTEIN 8.1 g/dL (6.7-8.2)
[2021-12-19] MEDS ORDERED: ONDANSETRON 4 MG/2 ML VIAL IVP STA (13:49)
[2021-12-19] MEDS ORDERED: KETOROLAC 30 MG/ML VIAL IVP STA (13:49)
[2021-12-19] MEDS ORDERED: SODIUM CHLORIDE 0.9% 1,000 ML IV STA (13:49)
--- NOTE | 2021-12-19 13:50 | ED Physician Documentation ---
PD HPI ABD PAIN - Stated complaint Stated Complaint: ABD PX,NAUSEA - Chief complaint Chief Complaint: Abd Pain - History obtained from History obtained from: Patient - Additional information Additional information: 65-year-old gentleman with history of type 2 diabetes and renal colic x1 presents with gradual onset but severe right-sided abdominal pain similar to prior renal colic starting around 8 AM this morning. The nurse noted that he was having difficulty urinating but he denies this to me. No hematuria. He has vomited. Review of Systems Ten Systems: 10 systems reviewed and negative Constitutional: denies: Fever, Chills Cardiac: denies: Chest pain / pressure, Palpitations Respiratory: denies: Dyspnea, Cough PD PAST MEDICAL HISTORY - Past Medical History Cardiovascular: Hypertension, High cholesterol Respiratory: None Endocrine/Autoimmune: Type 2 diabetes GI: Other : None HEENT: None Psych: None Musculoskeletal: Osteoarthritis Derm: None - Past Surgical History Past Surgical History: Yes General: Colonoscopy - Present Medications Home Medications: Ambulatory Orders Medication Instructions Recorded Confirmed Rosuvastatin Calcium [Crestor] 40 mg PO DAILY 04/20/13 12/04/20 metFORMIN [Glucophage] 1,500 mg PO DAILY 01/13/18 12/04/20 Exenatide Microspheres [Bydureon 2 mg SQ OAW 10/13/19 12/04/20 Pen] Ibuprofen [Motrin] 800 mg PO Q8H PRN #30 tablet 12/04/20 Ondansetron Odt [Zofran] 4 mg TL Q6H PRN #10 tablet 12/04/20 Oxycodone HCl/Acetaminophen 1 - 2 each PO Q6H PRN #14 tablet 12/04/20 [Percocet 5-325 mg Tablet] HYDROcod/ACETAM 5/325 [[place] 5/325] 1 - 2 tab PO Q6H PRN #15 tablet 12/19/21 Ibuprofen [Motrin] 800 mg PO Q8H PRN #14 tablet 12/19/21 Ondansetron Odt [Zofran] 4 mg TL Q6H PRN #10 tablet 12/19/21 Tamsulosin [Flomax] 0.4 mg PO DAILY #14 cap 12/19/21 - Allergies Allergies/Adverse Reactions: Allergies Allergy/AdvReac Type Severity Reaction Status Date / Time No Known Drug Allergies Allergy Verified 12/19/21 13:12 - Social History Does the pt smoke?: No Smoking Status: Never smoker Does the pt drink ETOH?: No Does the pt have substance abuse?: No - Immunizations Immunizations are current?: Yes Immunizations: TDAP >10years/unknown - POLST Patient has POLST: No PD ED PE NORMAL - Vitals Vital signs reviewed: Yes - General General: Alert and oriented X 3, No acute distress - Cardiac Cardiac: RRR, No murmur - Respiratory Respiratory: No respiratory distress, Clear bilaterally - Abdomen Abdomen: Normal bowel sounds, Soft, Non tender - Back Back: No CVA TTP - Derm Derm: Normal color, Warm and dry - Extremities Extremities: No edema, No calf tenderness / cord - Neuro Neuro: Alert and oriented X 3, Normal speech Results - Vitals Vitals: Vital Signs - 24 hr 12/19/21 12/19/21 13:08 13:47 Temperature 36.5 C 36.6 C Heart Rate 106 H 90 Respiratory 16 16 Rate Blood Pressure 156/108 H 140/90 H O2 Saturation 97 97 Oxygen O2 Source Room air - Labs Labs: Laboratory Tests 12/19/21 12/19/21 12/19/21 13:22 13:22 Unknown WBC 12.5 H RBC 4.99 Hgb 14.6 Hct 42.5 MCV 85.2 MCH 29.3 MCHC 34.4 RDW 12.2 Plt Count 267 MPV 9.8 Neut # (Auto) 10.7 H Lymph # (Auto) 1.0 L Benson # (Auto) 0.6 Eos # (Auto) 0.0 Baso # (Auto) 0.1 Absolute Nucleated RBC 0.00 Nucleated RBC % 0.0 Sodium 136 Potassium 3.9 Chloride 95 L Carbon Dioxide 25 Anion Gap 16.0 H BUN 24 H Creatinine 1.3 H Estimated GFR (MDRD) 56 L Glucose 288 H Calcium 9.7 Total Bilirubin 1.9 H AST 43 H ALT 52 Alkaline Phosphatase 96 Total Protein 8.1 Albumin 4.6 Globulin 3.5 Albumin/Globulin Ratio 1.3 Lipase 45 Urine Color DARK YELLOW Urine Clarity CLEAR Urine pH 5.0 Ur Specific [place] >=1.030 H Urine Protein 100 H Urine Glucose (UA) 500 H Urine Ketones 15 H Urine Occult Blood LARGE H Urine Nitrite NEGATIVE Urine Bilirubin NEGATIVE Urine Urobilinogen 0.2 (NORMAL) Ur Leukocyte Esterase NEGATIVE Urine RBC TNTC H Urine WBC 0-3 Ur Squamous Epith Cells NONE SEEN Urine Bacteria Few Ur Microscopic Review INDICATED Urine Culture Comments NOT INDICATED - Rads (name of study) CT A/P Radiology: EMP read contemporaneously PD MEDICAL DECISION MAKING - ED course ED course: 65-year-old gentleman with history of renal colic presents with similar pain on the other side and is found to have a 4 mm right UVJ stone. After the administration of Toradol and Zofran here is symptoms were much better. I am prescribing a short course of short-acting opioid pain medication for this patient. I have reviewed the patients [employer]READ[employer]ACH[employer] and no concerning findings were noted. I have discussed that the opioids are for short term therapy only, and will not be refilled from the ED. The patient was were counseled as to the diagnosis and need for follow-up. I counseled the patient with regard to signs and symptoms that would necessitate an urgent reevaluation in the emergency department. They understand they are welcome to return at any time if worse or if not improving as expected. This document was made in part using voice recognition software. While efforts are made to proofread this documents, sound alike and grammatical errors may occur. Departure - Departure Disposition: Home, Self Care Clinical Impression: Renal colic Condition: Good Record reviewed to determine appropriate education?: Yes Instructions: ED Stone Renal W Colic Prescriptions: Tamsulosin [Flomax] 0.4 mg PO DAILY #14 cap Ibuprofen [Motrin] 800 mg PO Q8H PRN #14 tablet PRN Reason: PAIN &/OR FEVER HYDROcod/ACETAM 5/325 [[place] 5/325] 1 - 2 tab PO Q6H PRN #15 tablet PRN Reason: Pain Ondansetron Odt [Zofran] 4 mg TL Q6H PRN #10 tablet PRN Reason: Nausea / Vomiting Comments: I sent your prescriptions electronically to [facility] in [place]. As discussed you have a 4 mm stone almost in the bladder on the right side. The expectation is that pain should not last more than a couple more days. Follow- up with your doctor in that timeframe if not improving. Return for new or worsening symptoms. I am prescribing a short course of narcotic pain medication for you. These are potentially dangerous and addictive medications that should be used carefully. These medications may constipate you. Take an grzu-gym-oqnuyiy stool softener (docusate) twice daily with plenty of water while taking these medications. If you go 24 hours without a bowel movement, take [id number] miralax, per package instructions. Do not drink or drive while taking these medications. If you received narcotic or sedating medications while in the emergency department, do not drive for 24 hours. Store this medication in a safe, secure place and out of reach of children. It is a violation of federal law to give or sell this medication to another person or to use in a manner other than prescribed. The ED will not refill narcotic prescriptions, including prescriptions lost or stolen. To dispose of unwanted medications: 1. [facility] at [address] in [place] has a medication drop box. They accept prescription medications (in pill form) Sunday through Sunday 9:00 a.m. to 5:00 p.m. 2. The [facility] accepts prescription medications (in pill form only) for disposal year round. Call for more information. 3. Contact the [facility] for the next [facility] sponsored prescription drug collection event. , [phone], or [phone]; Note that many narcotic pain relievers also contain Tylenol/acetaminophen. Please ensure that your total dose of acetaminophen from all sources does not exceed 3 g (3000 mg) per day. Your blood sugar was elevated today at 288. Drink plenty of fluids and manage this as you would usually. It is likely up because of a stress response from the kidney stone and pain.
[2021-12-19 14:20] LABS: BILIRUBIN,URINE NEGATIVE (NEGATIVE); GLUCOSE, URINE (UA) 500 mg/dL (NEGATIVE); KETONES,URINE (UA) 15 mg/dL (NEGATIVE); LEUKOCYTE ESTERASE, URINE NEGATIVE (NEGATIVE); NITRITE,URINE NEGATIVE (NEGATIVE); OCCULT BLOOD,URINE LARGE (NEGATIVE); PROTEIN,URINE 100 mg/dL (NEGATIVE); UROBILINOGEN,URINE 0.2 (NORMAL) E.U./dL (NORMAL)
[2021-12-19 14:30] LABS: CLARITY,URINE CLEAR (CLEAR)
--- NOTE | 2021-12-19 14:39 | CT Report ---
PROCEDURE: Abdomen/Pelvis WO INDICATIONS: Right flank pain TECHNIQUE: Noncontrast 5 mm thick sections acquired from the diaphragms to the symphysis. 5 mm coronal and sagi ttal reformats were then performed. For radiation dose reduction, the following was used: automated exposure control, adjustment of mA and/or kV according to patient size. COMPARISON: CT dated 12/04/2020 FINDINGS: Image quality: Excellent. ABDOMEN: Lung bases: Lung bases are clear. Heart size is normal. Solid organs: Liver and spleen are normal in size. Gallbladder is within normal limits Pancreas is normal in contours. No adrenal nodules. There is mild relative right renal enlargement. Left kidney is normal in size. No nephrolithiasis. Mild right hydronephrosis. 4 mm right ureterovesical junction calculus. No left hydronephrosis. Urinary bladder is grossly unremarkable. Peritoneum and bowel: Unenhanced bowel loops demonstrate normal wall thickness and caliber. Normal appendix. No free fluid or air. Nodes and vessels: No retroperitoneal or mesenteric adenopathy by size criteria. Aorta and inferior vena cava are normal in caliber. Miscellaneous: No ventral hernias. PELVIS: Genitourinary: Bladder wall thickness is normal. Miscellaneous: No inguinal hernias or adenopathy. Bones: No suspicious bony lesions. No vertebral body compression fractures. IMPRESSION: 1. Right ureterovesical junction calculus causing mild right hydronephrosis. 2. Normal appendix. Reviewed by: Cuba Howard MD on 12/19/2021 2:37 PM PDT Approved by: Cuba Howard MD on 12/19/2021 2:37 PM PDT Station ID: [id number]
[2021-12-19 14:48] LABS: BACTERIA,URINE Few /HPF (None Seen); RBC,URINE TNTC /HPF (0-5); SQUAMOUS EPITHELIAL CELL,UR NONE SEEN (<= Few); WBC,URINE 0-3 /HPF (0-3)
[2021-12-19 15:01] VITALS: BP 136/88
== END 2021-12-19 15:00 | disposition home or self-care (01) ==
LOC: ED 12:40
DX: N13.2 Hydronephrosis with renal and ureteral calculous obstruction (principal); I10 Essential (primary) hypertension; E11.9 Type 2 diabetes mellitus without complications; Z79.84 Long term (current) use of oral hypoglycemic drugs
CPT/HCPCS: 36415; 80053; 81001; 81003; 83690; 85025; 87086; 96374; 96375; 99283

== ENCOUNTER 2022-03-06 08:12 | Outpatient (CLI) | payer OTHER ==
[2022-03-06 11:50] LABS: CALCIUM 9.8 mg/dL (8.5-10.3); CREATININE 1.1 mg/dL (0.6-1.2); POTASSIUM 4.5 mmol/L (3.5-5.0)
[2022-03-06 12:03] LABS: CREATININE,URINE 352.1 mg/dL; MICROALBUM/CREATININE RATIO,UR 64.2 ug/mg (<30.0); MICROALBUMIN,URINE 22.6 mg/dL (0-300.0)
[2022-03-06 12:41] LABS: ESTIMATED AVERAGE GLUCOSE 214 mg/dL (70-100); HEMOGLOBIN A1c% 9.1 % (4.27-6.07)
== END 2022-03-06 08:13 | disposition home or self-care (01) ==
LOC: LAB.N 08:12
PROVIDERS: ATTEND Family Medicine
DX: I10 Essential (primary) hypertension (principal); E11.65 Type 2 diabetes mellitus with hyperglycemia
CPT/HCPCS: 36415; 80048; 82043; 82570; 83036

== ENCOUNTER 2022-08-03 09:17 | Outpatient (CLI) | payer OTHER, MEDICARE ==
[2022-08-03 12:23] LABS: BASOPHILS # (AUTO) 0.1 10^3/uL (0.0-0.1); BASOPHILS % (AUTO) 0.9 %; EOSINOPHILS # (AUTO) 0.3 10^3/uL (0.0-0.7); EOSINOPHILS % (AUTO) 5.2 %; HCT - HEMATOCRIT 40.6 % (42.0-52.0); HGB - HEMOGLOBIN 13.5 g/dL (14.0-18.0); LYMPHOCYTES # (AUTO) 1.6 10^3/uL (1.5-3.5); LYMPHOCYTES % (AUTO) 25.2 %; MEAN CORPUSCULAR HEMOGLOBIN 28.8 pg (27.0-31.0); MEAN CORPUSCULAR HGB CONC 33.3 g/dL (32.0-36.0); MEAN CORPUSCULAR VOLUME 86.6 fL (80.0-94.0); MEAN PLATELET VOLUME 10.4 fL (7.4-11.4); MONOCYTES # (AUTO) 0.6 10^3/uL (0.0-1.0); MONOCYTES % (AUTO) 8.8 %; NEUTROPHILS # (AUTO) 3.9 10^3/uL (1.5-6.6); NEUTROPHILS % (AUTO) 59.6 %; PLT - PLATELET COUNT 300 10^3/uL (130-450); RED BLOOD COUNT 4.69 10^6/uL (4.70-6.10); RED CELL DISTRIBUTION WIDTH 12.2 % (12.0-15.0); WHITE BLOOD COUNT 6.5 x10^3/uL (4.8-10.8)
[2022-08-03 12:58] LABS: ALBUMIN 4.4 g/dL (3.2-5.5); ALBUMIN/GLOBULIN RATIO 1.4 (1.0-2.2); ALKALINE PHOSPHATASE 93 IU/L (42-121); ALT ALANINE AMINOTRANSFERASE 48 IU/L (10-60); AST ASPARTATE AMINOTRANSFERASE 27 IU/L (10-42); BUN - BLOOD UREA NITROGEN 16 mg/dL (6-20); CALCIUM 9.5 mg/dL (8.5-10.3); CARBON DIOXIDE - CO2 28 mmol/L (21-32); CHLORIDE 97 mmol/L (101-111); CHOL/HDL RATIO 4.4 (<5.0); CHOLESTEROL 150 mg/dL; GFR - MDRD 75 (>89); GLUCOSE 258 mg/dL (70-100); HDL CHOLESTEROL 34 mg/dL; POTASSIUM 4.5 mmol/L (3.5-5.0); SODIUM 133 mmol/L (135-145); TOTAL PROTEIN 7.6 g/dL (6.7-8.2); TRIGLYCERIDES 456 mg/dL
[2022-08-03 13:07] LABS: CREATININE,URINE 209.5 mg/dL; MICROALBUM/CREATININE RATIO,UR 64.9 ug/mg (<30.0); MICROALBUMIN,URINE 13.6 mg/dL (0-300.0)
[2022-08-03 13:14] LABS: ESTIMATED AVERAGE GLUCOSE 252 mg/dL (70-100); HEMOGLOBIN A1c% 10.4 % (4.27-6.07)
[2022-08-03 14:31] LABS: LDL CHOLESTEROL,DIRECT 47 mg/dL; LDLD/HDL RATIO 1.4 (<3.6)
== END 2022-08-03 09:18 | disposition home or self-care (01) ==
LOC: LAB.N 09:17
PROVIDERS: ATTEND Family Medicine
DX: I10 Essential (primary) hypertension (principal); E11.65 Type 2 diabetes mellitus with hyperglycemia; E11.21 Type 2 diabetes mellitus with diabetic nephropathy; E66.9 Obesity, unspecified
CPT/HCPCS: 36415; 80053; 80061; 82043; 82570; 83036; 83721; 85025

== ENCOUNTER 2023-01-23 09:27 | Outpatient (CLI) | payer MEDICARE, OTHER ==
[2023-01-23 12:13] LABS: CALCIUM 9.7 mg/dL (8.5-10.3); ESTIMATED AVERAGE GLUCOSE 252 mg/dL (70-100); HEMOGLOBIN A1c% 10.4 % (4.27-6.07); POTASSIUM 4.5 mmol/L (3.5-5.0)
[2023-01-23 12:21] LABS: CREATININE,URINE 100.8 mg/dL; MICROALBUM/CREATININE RATIO,UR 84.3 ug/mg (<30.0); MICROALBUMIN,URINE 8.5 mg/dL (0-300.0)
== END 2023-01-23 09:28 | disposition home or self-care (01) ==
LOC: LAB.N 09:27
PROVIDERS: ATTEND Family Medicine
DX: I10 Essential (primary) hypertension (principal); E11.65 Type 2 diabetes mellitus with hyperglycemia
CPT/HCPCS: 36415; 80048; 82043; 82570; 83036

== ENCOUNTER 2023-03-13 09:34 | Outpatient (CLI) | payer MEDICARE, OTHER ==
[2023-03-13 12:41] LABS: CALCIUM 9.2 mg/dL (8.5-10.3); POTASSIUM 4.2 mmol/L (3.5-5.0)
[2023-03-13 12:48] LABS: CREATININE,URINE 148.6 mg/dL; MICROALBUM/CREATININE RATIO,UR 39.7 ug/mg (<30.0); MICROALBUMIN,URINE 5.9 mg/dL (0-300.0)
[2023-03-13 13:05] LABS: ESTIMATED AVERAGE GLUCOSE 171 mg/dL (70-100); HEMOGLOBIN A1c% 7.6 % (4.27-6.07)
== END 2023-03-13 09:35 | disposition home or self-care (01) ==
LOC: LAB.N 09:34
PROVIDERS: ATTEND Family Medicine
DX: E11.65 Type 2 diabetes mellitus with hyperglycemia (principal)
CPT/HCPCS: 36415; 80048; 82043; 82570; 83036

== ENCOUNTER 2023-06-15 10:13 | Outpatient (CLI) | payer MEDICARE, OTHER ==
[2023-06-15 12:26] LABS: CALCIUM 9.9 mg/dL (8.5-10.3); CREATININE 1.1 mg/dL (0.6-1.3); POTASSIUM 5.2 mmol/L (3.5-4.5)
[2023-06-15 12:37] LABS: CREATININE,URINE 137.7 mg/dL; ESTIMATED AVERAGE GLUCOSE 140 mg/dL (70-100); HEMOGLOBIN A1c% 6.5 % (4.27-6.07); MICROALBUM/CREATININE RATIO,UR 39.2 ug/mg (<30.0); MICROALBUMIN,URINE 5.4 mg/dL
== END 2023-06-15 10:14 | disposition home or self-care (01) ==
LOC: LAB.N 10:13
PROVIDERS: ATTEND Family Medicine
DX: E11.65 Type 2 diabetes mellitus with hyperglycemia (principal)
CPT/HCPCS: 36415; 80048; 82043; 82570; 83036

== ENCOUNTER 2023-09-15 09:37 | Outpatient (CLI) | payer MEDICARE, OTHER ==
[2023-09-15 19:47] LABS: BASOPHILS # (AUTO) 0.1 10^3/uL (0.0-0.1); BASOPHILS % (AUTO) 0.9 %; EOSINOPHILS # (AUTO) 0.4 10^3/uL (0.0-0.7); EOSINOPHILS % (AUTO) 6.7 %; HCT - HEMATOCRIT 41.1 % (42.0-52.0); HGB - HEMOGLOBIN 13.2 g/dL (14.0-18.0); LYMPHOCYTES # (AUTO) 1.3 10^3/uL (1.5-3.5); LYMPHOCYTES % (AUTO) 23.3 %; MEAN CORPUSCULAR HEMOGLOBIN 28.9 pg (27.0-31.0); MEAN CORPUSCULAR HGB CONC 32.1 g/dL (32.0-36.0); MEAN CORPUSCULAR VOLUME 90.1 fL (80.0-94.0); MEAN PLATELET VOLUME 10.3 fL (7.4-11.4); MONOCYTES # (AUTO) 0.5 10^3/uL (0.0-1.0); MONOCYTES % (AUTO) 8.7 %; NEUTROPHILS # (AUTO) 3.4 10^3/uL (1.5-6.6); NEUTROPHILS % (AUTO) 60.2 %; PLT - PLATELET COUNT 306 10^3/uL (130-450); RED BLOOD COUNT 4.56 10^6/uL (4.70-6.10); RED CELL DISTRIBUTION WIDTH 12.7 % (12.0-15.0); WHITE BLOOD COUNT 5.7 x10^3/uL (4.8-10.8)
[2023-09-15 19:58] LABS: ALBUMIN 4.5 g/dL (3.2-5.5); ALBUMIN/GLOBULIN RATIO 1.7 (1.0-2.2); ALKALINE PHOSPHATASE 82 IU/L (42-121); ALT ALANINE AMINOTRANSFERASE 25 IU/L (10-60); AST ASPARTATE AMINOTRANSFERASE 17 IU/L (10-42); BILIRUBIN,TOTAL 1.4 mg/dL (0.2-1.0); BUN - BLOOD UREA NITROGEN 21 mg/dL (6-20); CALCIUM 9.2 mg/dL (8.5-10.3); CARBON DIOXIDE - CO2 28 mmol/L (21-32); CHLORIDE 101 mmol/L (101-111); CHOLESTEROL 118 mg/dL; GFR - MDRD 75 (>89); GLUCOSE 146 mg/dL (74-104); HDL CHOLESTEROL 39 mg/dL; LDL CHOLESTEROL,CALCULATED 36 mg/dL; LDL/HDL RATIO 0.9 (<3.6); POTASSIUM 4.5 mmol/L (3.5-4.5); SODIUM 137 mmol/L (135-145); TOTAL PROTEIN 7.2 g/dL (6.4-8.9); TRIGLYCERIDES 213 mg/dL (48-352); VLDL CHOLESTEROL 43 mg/dL
[2023-09-15 20:00] LABS: CREATININE,URINE 195.1 mg/dL; MICROALBUM/CREATININE RATIO,UR 64.6 ug/mg (<30.0); MICROALBUMIN,URINE 12.6 mg/dL
[2023-09-15 20:01] LABS: THYROID STIMULATING HORMONE 2.42 uIU/mL (0.34-5.60)
[2023-09-16 11:56] LABS: ESTIMATED AVERAGE GLUCOSE 134 mg/dL (70-100); HEMOGLOBIN A1c% 6.3 % (4.27-6.07)
== END 2023-09-15 09:38 | disposition home or self-care (01) ==
LOC: LAB.N 09:37
PROVIDERS: ATTEND Family Medicine
DX: I10 Essential (primary) hypertension (principal); E11.9 Type 2 diabetes mellitus without complications; K59.09 Other constipation; Z12.5 Encounter for screening for malignant neoplasm of prostate; Z79.4 Long term (current) use of insulin
CPT/HCPCS: 36415; 80053; 80061; 82043; 82570; 83036; 84443; 85025; G0103; 83721; 84153

== ENCOUNTER 2024-02-16 09:13 | Outpatient (CLI) | payer MEDICARE, OTHER ==
[2024-02-16 20:09] LABS: CALCIUM 9.5 mg/dL (8.5-10.3); CREATININE 1.1 mg/dL (0.6-1.3); POTASSIUM 4.8 mmol/L (3.5-4.5)
[2024-02-16 20:21] LABS: CREATININE,URINE 156.8 mg/dL; MICROALBUM/CREATININE RATIO,UR 45.3 ug/mg (<30.0); MICROALBUMIN,URINE 7.1 mg/dL
[2024-02-16 21:42] LABS: ESTIMATED AVERAGE GLUCOSE 171 mg/dL (70-100); HEMOGLOBIN A1c% 7.6 % (4.27-6.07)
== END 2024-02-16 09:14 | disposition home or self-care (01) ==
LOC: LAB.N 09:13
PROVIDERS: ATTEND Family Medicine
DX: E11.9 Type 2 diabetes mellitus without complications (principal); Z79.4 Long term (current) use of insulin
CPT/HCPCS: 36415; 80048; 82043; 82570; 83036

== ENCOUNTER 2024-04-03 08:53 | Emergency (ER) | payer MEDICARE, OTHER ==
--- NOTE | 2024-04-03 09:07 | ED Physician Documentation ---
PD HPI UPPER EXT INJURY - Stated complaint Stated Complaint: LT FINGER LAC - History obtained from History obtained from: Patient - History of Present Illness Location: Left, Finger Type of injury: Laceration (Accidentally cut the dorsal side of his left index finger at the PIP joint down to the fatty tissue with a box maker paperboard at work) Where injury occurred: Work Timing - onset: Today Timing - details: Abrupt onset Worsened by: Moving, Palpating Associated symptoms: No: Weakness, Numbness Contributing factors: No: Anticoagulated Review of Systems Neurologic: denies: Focal weakness, Numbness PD PAST MEDICAL HISTORY - Past Medical History Cardiovascular: Hypertension, High cholesterol Respiratory: None Endocrine/Autoimmune: Type 2 diabetes GI: Other : None HEENT: None Psych: None Musculoskeletal: Osteoarthritis Derm: None - Past Surgical History Past Surgical History: Yes General: Colonoscopy - Present Medications Home Medications: Ambulatory Orders Medication Instructions Recorded Confirmed Rosuvastatin Calcium [Crestor] 40 mg PO DAILY 04/20/13 12/04/20 metFORMIN [Glucophage] 1,500 mg PO DAILY 01/13/18 12/04/20 Exenatide Microspheres [Bydureon 2 mg SQ OAW 10/13/19 12/04/20 Pen] Ibuprofen [Motrin] 800 mg PO Q8H PRN #30 tablet 12/04/20 Ondansetron Odt [Zofran] 4 mg TL Q6H PRN #10 tablet 12/04/20 Oxycodone HCl/Acetaminophen 1 - 2 each PO Q6H PRN #14 tablet 12/04/20 [Percocet 5-325 mg Tablet] HYDROcod/ACETAM 5/325 [[place] 5/325] 1 - 2 tab PO Q6H PRN #15 tablet 12/19/21 Ibuprofen [Motrin] 800 mg PO Q8H PRN #14 tablet 12/19/21 Ondansetron Odt [Zofran] 4 mg TL Q6H PRN #10 tablet 12/19/21 Tamsulosin [Flomax] 0.4 mg PO DAILY #14 cap 12/19/21 - Allergies Allergies/Adverse Reactions: Allergies Allergy/AdvReac Type Severity Reaction Status Date / Time No Known Drug Allergies Allergy Verified 12/19/21 13:12 - Social History Does the pt smoke?: No Smoking Status: Never smoker Does the pt drink ETOH?: No Does the pt have substance abuse?: No - Immunizations Immunizations are current?: Yes Immunizations: TDAP >10years/unknown - POLST Patient has POLST: No PD ED PE NORMAL - Vitals Vital signs reviewed: Yes - General General: Alert and oriented X 3, No acute distress, Well developed/nourished - Derm Derm: Normal color, Warm and dry - Extremities Extremities: Other (The left index finger on the dorsal radial side at the PIP joint has a 2 cm crisp edged laceration down to the fatty tissue without any deep structures involved. Mild oozing of blood. No foreign bodies.) - Neuro Neuro: No motor deficit, No sensory deficit Results - Vitals Vitals: Vital Signs - 24 hr 04/03/24 04/03/24 09:06 10:34 Temperature 36.6 C 36.3 C L Heart Rate 84 76 Respiratory 18 18 Rate Blood Pressure 122/77 135/90 H O2 Saturation 97 95 Oxygen O2 Source Room air Procedures - Laceration (location) left index fingwer Length in cm: 2 Wound type: Linear, Into subcut fat, Clean Neurovascular status: Sensory intact, Vascular intact Tendon involvement: Tendon intact Anesthesia: Lidocaine 1% with epi Wound preparation: Irrigated copiously NS Skin layer closure: Nylon, Running, Size #-0 - enter number (4), Sutures - enter # (6) Other: Patient tolerated well, No complications, Neurovascular intact, Dressing applied, Tetanus booster given PD Medical Decision Making - ED course Complexity details: considered differential (The patient with a laceration to the dorsal aspect of the PIP joint that opens with movement and still has slight bleeding. As such tape and glue are not appropriate. Sutures are indicated. The wound was sutured with good closure.), d/w patient Departure - Departure Disposition: 01 Home, Self Care Clinical Impression: Finger laceration, Requires a booster tetanus Condition: Stable Instructions: ED Laceration Hand Follow-Up: Lew Godinez MD [Primary Care Provider] - Comments: It is okay to wash and shower. Clean off the wound twice a day with soap and water, or peroxide and water. Apply some antibiotic ointment to it to keep it moist. Also to watch for signs of infection such as purulence, redness or increasing pain. Return to your primary care or the ER at the specified time for suture removal. Suture removal 7 to 10 days. Regular activities okay with the finger. Forms: PCP List Discharge Date/Time: 04/03/24 10:34
[2024-04-03] MEDS: TETANUS/DIPHTHERIA/PERTUSSIS 0.5 ML SYRINGE IM ONE (09:26)
[2024-04-03] MEDS: LIDOCAINE 1%-EPI 1:100000 20 ML MDV SUBQ STA (09:30)
[2024-04-03 10:37] VITALS: BP 135/90; O2SAT 95
== END 2024-04-03 10:34 | disposition home or self-care (01) ==
LOC: ED 08:53
DX: S61.211A Laceration without foreign body of left index finger without damage to nail, initial encounter (principal); W26.0XXA Contact with knife, initial encounter; Y92.89 Other specified places as the place of occurrence of the external cause; Y99.0 Civilian activity done for income or pay; Z23 Encounter for immunization; I10 Essential (primary) hypertension; E78.00 Pure hypercholesterolemia, unspecified; E11.9 Type 2 diabetes mellitus without complications; Z79.899 Other long term (current) drug therapy
CPT/HCPCS: 12001; 90471; 99283

== ENCOUNTER 2024-05-06 14:00 | Outpatient (CLI) | payer MEDICARE, OTHER ==
[2024-05-06 17:57] LABS: BASOPHILS # (AUTO) 0.1 10^3/uL (0.0-0.1); BASOPHILS % (AUTO) 0.9 %; EOSINOPHILS # (AUTO) 0.3 10^3/uL (0.0-0.7); EOSINOPHILS % (AUTO) 4.4 %; HGB - HEMOGLOBIN 12.9 g/dL (14.0-18.0); LYMPHOCYTES # (AUTO) 1.7 10^3/uL (1.5-3.5); LYMPHOCYTES % (AUTO) 21.3 %; MEAN CORPUSCULAR HEMOGLOBIN 28.5 pg (27.0-31.0); MEAN CORPUSCULAR HGB CONC 32.3 g/dL (32.0-36.0); MEAN CORPUSCULAR VOLUME 88.5 fL (80.0-94.0); MEAN PLATELET VOLUME 10.6 fL (7.4-11.4); MONOCYTES # (AUTO) 0.6 10^3/uL (0.0-1.0); MONOCYTES % (AUTO) 7.1 %; NEUTROPHILS # (AUTO) 5.1 10^3/uL (1.5-6.6); PLT - PLATELET COUNT 276 10^3/uL (130-450); RED BLOOD COUNT 4.52 10^6/uL (4.70-6.10); RED CELL DISTRIBUTION WIDTH 12.5 % (12.0-15.0); WHITE BLOOD COUNT 7.7 x10^3/uL (4.8-10.8)
[2024-05-06 18:17] LABS: ALBUMIN 4.7 g/dL (3.2-5.5); ALBUMIN/GLOBULIN RATIO 1.9 (1.0-2.2); ALKALINE PHOSPHATASE 74 IU/L (42-121); ALT ALANINE AMINOTRANSFERASE 30 IU/L (10-60); AST ASPARTATE AMINOTRANSFERASE 27 IU/L (10-42); BILIRUBIN,TOTAL 1.9 mg/dL (0.2-1.0); BUN - BLOOD UREA NITROGEN 24 mg/dL (6-20); CALCIUM 9.3 mg/dL (8.5-10.3); CARBON DIOXIDE - CO2 27 mmol/L (21-32); CHLORIDE 103 mmol/L (101-111); CHOL/HDL RATIO 3.2 (<5.0); CHOLESTEROL 132 mg/dL; CREATININE 0.9 mg/dL (0.6-1.3); GFR - MDRD 84 (>89); GLUCOSE 88 mg/dL (74-104); HDL CHOLESTEROL 41 mg/dL; LDL CHOLESTEROL,CALCULATED 55 mg/dL; LDL/HDL RATIO 1.3 (<3.6); SODIUM 137 mmol/L (135-145); TOTAL PROTEIN 7.2 g/dL (6.4-8.9); TRIGLYCERIDES 178 mg/dL; VLDL CHOLESTEROL 36 mg/dL
[2024-05-06 18:21] LABS: CREATININE,URINE 130.5 mg/dL; MICROALBUM/CREATININE RATIO,UR 62.1 ug/mg (<30.0); MICROALBUMIN,URINE 8.1 mg/dL
[2024-05-06 21:55] LABS: ESTIMATED AVERAGE GLUCOSE 171 mg/dL (70-100); HEMOGLOBIN A1c% 7.6 % (4.27-6.07)
== END 2024-05-06 14:01 | disposition home or self-care (01) ==
LOC: LAB.N 14:00
PROVIDERS: ATTEND Family Medicine
DX: I10 Essential (primary) hypertension (principal); Z12.5 Encounter for screening for malignant neoplasm of prostate; K59.09 Other constipation; E11.65 Type 2 diabetes mellitus with hyperglycemia; E66.9 Obesity, unspecified
CPT/HCPCS: 36415; 80053; 80061; 82043; 82570; 83036; 84443; 85025; G0103; 83721; 84153

== ENCOUNTER 2024-05-23 10:30 | Outpatient (CLI) | payer MEDICARE, OTHER ==
[2024-05-23 18:05] LABS: ALBUMIN 4.4 g/dL (3.2-5.5); ALBUMIN/GLOBULIN RATIO 1.4 (1.0-2.2); BILIRUBIN,TOTAL 1.4 mg/dL (0.2-1.0); CALCIUM 9.7 mg/dL (8.5-10.3); POTASSIUM 5.4 mmol/L (3.5-4.5); TOTAL PROTEIN 7.6 g/dL (6.4-8.9)
== END 2024-05-23 10:45 | disposition home or self-care (01) ==
LOC: LAB.N 10:30
PROVIDERS: ATTEND Nurse Practitioner
DX: L08.9 Local infection of the skin and subcutaneous tissue, unspecified (principal)
CPT/HCPCS: 36415; 80053; 87070; 87205

== ENCOUNTER 2024-06-04 08:13 | Observation (INO) ==
--- NOTE | 2024-06-04 08:34 | ED Physician Documentation ---
History of Present Illness Stated complaint Stated Complaint: Vomiting Chief complaint Chief Complaint: Abd Pain Additonal information Additional information: 68yo M with history of nephrolithiasis, hypertension, diabetes on insulin, hypercholesterolemia, osteoarthritis presents with abdominal pain, N/V, sent from clinic. He was recently seen for vomiting. N/V is not improving, and he was sent from clinic with abdominal pain as well for further evaluation. Per chart review, he was seen in the ER 2 days ago with nausea and vomiting. He received fluids, Zofran, droperidol. He improved and was discharged in stable condition with Zofran prescription. He returns to clinic today with nausea and vomiting, stating Zofran was not helping sufficiently. He clarifies with me here that after a few days of frequent nausea and vomiting, nonbloody, with no other clear symptoms, he developed mild shortness of breath, diffuse abdominal discomfort worse in lower abdomen, along with burning substernal chest pain after vomiting. No blood in vomit still. No diarrhea or constipation. No fevers or chills, cough, sore throat, rhinorrhea. No urinary symptoms. He is still taking his insulin. He denies prior abdominal surgeries to me. He is here with spouse who corroborates history. No other new concerns. Review of Systems ROS Constitutional: no fever, no chills Eyes: no visual disturbance, no discharge Ears, Nose, Mouth, Throat: no rhinorrhea, no sore throat Cardiovascular: +chest pain, no palpitations Respiratory: no cough, no shortness of breath Gastrointestinal: +abdominal pain, +vomiting, no diarrhea Genitourinary: no dysuria, no hematuria Musculoskeletal: no back pain, no neck stiffness Skin: no rash, no wound Neurological: no focal weakness, no focal numbness Meds/Allgy Home Medications Ambulatory Orders Medication Instructions Recorded Confirmed rosuvastatin 5 mg tablet (Crestor) 40 mg PO DAILY 04/20/13 06/04/24 metformin 500 mg tablet 1,500 mg PO DAILY 01/13/18 06/04/24 exenatide microspheres 2 mg/0.65 2 mg SQ OAW 10/13/19 06/04/24 mL subcutaneous pen injector (Bydureon) ibuprofen 800 mg tablet 800 mg PO Q8H PRN PAIN &/OR FEVER 12/04/20 06/04/24 #30 tabs ondansetron 4 mg disintegrating 4 mg translingual Q6H PRN Nausea / 12/04/20 06/04/24 tablet Vomiting #10 tabs oxycodone-acetaminophen 5 mg-325 1 - 2 ea PO Q6H PRN pain #14 tabs 12/04/20 06/04/24 mg tablet (Percocet) hydrocodone 5 mg-acetaminophen 325 1 - 2 tab PO Q6H PRN Pain #15 tabs 12/19/21 1 mg tablet ibuprofen 800 mg tablet 800 mg PO Q8H PRN PAIN &/OR FEVER 12/19/21 06/04/24 #14 tabs ondansetron 4 mg disintegrating 4 mg translingual Q6H PRN Nausea / 12/19/21 06/04/24 tablet Vomiting #10 tabs tamsulosin 0.4 mg capsule 0.4 mg PO DAILY #14 caps 12/19/21 06/04/24 ondansetron HCl 4 mg tablet 4 mg PO Q8H PRN nausea and 06/03/24 06/04/24 vomiting #14 tabs telmisartan 80 mg tablet 80 mg PO DAILY 06/04/24 06/04/24 Allergies Allergies Allergy/AdvReac Type Severity Reaction Status Date / Time No Known Drug Allergies Allergy Verified 06/04/24 08:25 [facility] Medical History Medical History Hypertension Hyperlipidemia Diabetes Surgical History Surgical History Hx of colonoscopy Social History Social History (Updated 06/04/24 @ 09:17 by Tianna Perez RN, BSN) Smoking Status: Never smoker If you are a former smoker, when did you quit? (Date/Year): 6 yrs ago Do you vape?: No Living arrangement: At home Relationship: Do you feel safe in your home environment?: Yes Suffered physical, verbal, emotional, or financial abuse?: No History of Abuse: No ETOH Use: Beer Frequency: Occasional POLST Patient has POLST: No Exam Exam Const: no acute distress, +toxic appearing; calm, conversant, pleasant, with increased RR to low 20s Eyes: PERRLA, EOMI ENT: mucous membranes moist Neck: supple, non-tender Resp: tachypnea to low 20s, clear to auscultation bilaterally Card: regular rate and rhythm, no murmurs Abd: diffusely mildly tender, worse in lower abdomen; negative Goldberg's sign; no rigidity or rebound or guarding Back: no T or L spine tenderness, no CVA tenderness bilaterally Extrem: no deformities, no swelling bilateral lower extremities, 2+ distal pulses all extremities Neuro: ANOx4, coater brake linings grossly intact, grossly intact sensation and strength all extremities Skin: no rash, warm and dry Results Vitals Vitals: Vital Signs - 24 hr 06/04/24 08:23 06/04/24 09:00 06/04/24 10:19 Temperature 36.6 C Pulse Rate 85 98 H 111 H Respiratory Rate 20 16 17 Blood Pressure 160/88 H 158/96 H 167/93 H O2 Saturation 98 98 98 O2 Source Room air Room air Pain Intensity 4 5 06/04/24 12:00 Temperature Pulse Rate 120 H Respiratory Rate 18 Blood Pressure 158/97 H O2 Saturation 98 O2 Source Room air Pain Intensity Oxygen O2 Source Room air Labs Labs: Laboratory Tests 06/04/24 06/04/24 06/04/24 08:30 08:37 08:38 WBC 9.5 RBC 4.71 Hgb 13.1 L Hct 40.4 L MCV 85.8 MCH 27.8 MCHC 32.4 RDW 12.3 Plt Count 303 MPV 9.7 Neut # (Auto) 8.2 H Lymph # (Auto) 0.9 L Stevens # (Auto) 0.3 Eos # (Auto) 0.0 Baso # (Auto) 0.1 Absolute Nucleated RBC 0.00 Nucleated RBC % 0.0 D-Dimer < 200.0 L VBG pH VBG pCO2 VBG pO2 VBG HCO3 VBG Total CO2 VBG O2 Saturation VBG Base Excess Sodium 133 L Potassium 4.5 Chloride 100 L Carbon Dioxide 23 Anion Gap 10.0 BUN 34 H Creatinine 1.3 Estimated GFR (MDRD) 55 L Glucose 169 H Calcium 9.6 Phosphorus 1.7 L Magnesium 1.6 L Total Bilirubin 1.7 H AST 29 ALT 34 Alkaline Phosphatase 69 Troponin I High Sens 2.5 Total Protein 7.9 Albumin 4.6 Globulin 3.3 Albumin/Globulin Ratio 1.4 Lipase 28 Urine Color Urine Clarity Urine pH Ur Specific [place] Urine Protein Urine Glucose (UA) Urine Ketones Urine Occult Blood Urine Nitrite Urine Bilirubin Urine Urobilinogen Ur Leukocyte Esterase Urine RBC Urine WBC Ur Squamous Epith Cells Urine Bacteria Urine Culture Comments Nasal Influenza B PCR NOT DETECTED Nasal Influenza A PCR NOT DETECTED Nasal RSV (PCR) NOT DETECTED Nasal SARS-CoV-2 (PCR) NOT DETECTED 06/04/24 06/04/24 08:40 10:13 WBC RBC Hgb Hct MCV MCH MCHC RDW Plt Count MPV Neut # (Auto) Lymph # (Auto) Stevens # (Auto) Eos # (Auto) Baso # (Auto) Absolute Nucleated RBC Nucleated RBC % D-Dimer VBG pH 7.512 H VBG pCO2 24.6 L VBG pO2 21.3 L VBG HCO3 19.3 L VBG Total CO2 20.0 L VBG O2 Saturation 48.2 L VBG Base Excess -1.9 Sodium Potassium Chloride Carbon Dioxide Anion Gap BUN Creatinine Estimated GFR (MDRD) Glucose Calcium Phosphorus Magnesium Total Bilirubin AST ALT Alkaline Phosphatase Troponin I High Sens Total Protein Albumin Globulin Albumin/Globulin Ratio Lipase Urine Color YELLOW Urine Clarity CLEAR Urine pH 6.0 Ur Specific [place] >=1.030 H Urine Protein 30 H Urine Glucose (UA) NEGATIVE Urine Ketones 15 H Urine Occult Blood NEGATIVE Urine Nitrite NEGATIVE Urine Bilirubin NEGATIVE Urine Urobilinogen 0.2 (NORMAL) Ur Leukocyte Esterase NEGATIVE Urine RBC None Seen Urine WBC 0-3 Ur Squamous Epith Cells NONE SEEN Urine Bacteria None Seen Urine Culture Comments NOT INDICATED Nasal Influenza B PCR Nasal Influenza A PCR Nasal RSV (PCR) Nasal SARS-CoV-2 (PCR) PD Medical Decision Making ED course ED course: This patient presents with multiple days of nonbloody nausea and vomiting, followed by shortness of breath, abdominal and chest pain, with history of diabetes on insulin. This is most suggestive of DKA, however I have considered a broad differential including not limited to viral syndrome, pneumonia, electrolyte derangements, intravascular volume depletion, ACS, pancreatitis, esophagitis, diverticulitis, appendicitis, gastroparesis, UTI, pyelonephritis, among others. Note his abdominal discomfort may be secondary to underlying DKA, however, I am still pursuing CT abdomen pelvis with contrast to assess for infectious etiologies versus less likely such as obstruction. In addition, his chest pain seems most likely secondary to his vomiting, with Boerhaave's far less likely currently, however I am obtaining EKG and troponin to assess for cardiac injury. I am also obtaining CBC, CMP, lipase, VBG, mag, Phos, urinalysis, chest x-ray. I am giving fluids, Reglan and will closely reassess. I cannot currently obtain beta-hydroxybutyrate. EKG shows normal sinus rhythm without clear acute ischemia or immediately concerning interval prolongation. I do note potential peaked T waves in anteri or precordial leads, though overall EKG morphology is similar to October 13, 2019 EKG. Labs: VBG with alkalosis, which appears to be primarily respiratory. CBC with no leukocytosis, with anemia similar to prior, no thrombocytopenia. Chemistry with mild hyponatremia improved from 2 days ago, potassium within normal limits now at 4.5, improved from 2 days ago, creatinine still slightly increased from baseline but improved from 2 days ago, borderline hypomagnesemia, hypophosphatemia, no AST or ALT or alk phos elevation. High-sensitivity troponin reassuring. Lipase reassuring. I am giving available PO phos here, along with mag oxide. Viral swab negative. AG WNL. This is not DKA. Urine with ketones, no clear infection. CXR rads read, which I agree with on my review: "FINDINGS: Surgical changes and devices: None. Lungs and pleura: No pleural effusions or pneumothorax. Lungs are clear. Mediastinum: Mediastinal contours appear normal. Heart size is normal. Bones and chest wall: No suspicious bony lesions. Overlying soft tissues appear unremarkable. IMPRESSION: No acute cardiopulmonary process. Reviewed by: Garland Ocampo MD on 06/04/2024 10:38 AM PDT" CT: I agree with rads read on my independent review "FINDINGS: Image quality: Diagnostic. Lower chest: Unremarkable. Liver: No solid mass. Gallbladder: No radiopaque stones or wall thickening. Biliary tree: No intrahepatic or extrahepatic dilation, accounting for age. Spleen: No splenomegaly. Pancreas: No pancreatic ductal dilation. Adrenals: No adrenal nodule. Kidneys and ureters: No hydronephrosis. No renal cystic lesion which requires follow up. No solid mass. Punctate, nonobstructing right-sided nephrolithiasis. Stomach, bowel and peritoneum: No gastric or small bowel dilation. No abnormal wall thickening. No pathologic free fluid. Diverticulosis without evidence of diverticulitis. Lymph nodes: No central or retroperitoneal adenopathy. Vessels: No infrarenal aortic aneurysm. Patent portal vein. PELVIS Reproductive organs: Unremarkable. Bladder: No abnormal wall thickening, accounting for underdistention. Pelvic lymph nodes: No pelvic adenopathy by size criteria. Bones: No aggressive osseous abnormality. Other: Fat within the inguinal canals. IMPRESSION: No acute abnormality. Punctate, nonobstructive right-sided nephrolithiasis. Normal appendix. No diverticulitis. Moderate fat within the inguinal canals. Reviewed by: Garland Ocampo MD on 06/04/2024 10:37 AM PDT" Work up is overall raessuring, however patient remains tachycardic with difficulty tolerating PO. I am ordering IV compazine, additional 1L NS. Patient noting some pleuritic chest pain; while I think PE is less likely, adding d-dimer for risk stratification. Dimer: WNL, arguing against PE. Viral syndrome possible. Reassessment: patient still tachycardic, nauseated. Consulting hospitalist. I spoke with Dr. Beck who kindly accepts for admission to obs. Adding viral swab. Viral syndrome remains possible. Patient tachycardic though otherwise stable. Note currently there is no clear focal bacterial infection, and accordingly I am holding antibiotics. Discharge Plan Discharge Prescriptions: No Action rosuvastatin [Crestor] 5 MG tablet 40 mg PO DAILY metformin 500 MG tablet 1,500 mg PO DAILY Rx Instructions: ER Bydureon 2 MG/0.65 ML pen injector 2 mg SQ OAW ibuprofen 800 MG tablet 800 mg PO Q8H PRN (Reason: PAIN &/OR FEVER) Qty: 30 0RF oxycodone-acetaminophen [Percocet] 1 EACH tablet 1 - 2 ea PO Q6H PRN (Reason: pain) Qty: 14 0RF ondansetron 4 MG tablet,disintegrating 4 mg translingual Q6H PRN (Reason: Nausea / Vomiting) Qty: 10 0RF ibuprofen 800 MG tablet 800 mg PO Q8H PRN (Reason: PAIN &/OR FEVER) Qty: 14 0RF hydrocodone-acetaminophen 1 TAB tablet 1 - 2 tab PO Q6H PRN (Reason: Pain) Qty: 15 0RF tamsulosin 0.4 MG capsule 0.4 mg PO DAILY Qty: 14 0RF ondansetron 4 MG tablet,disintegrating 4 mg translingual Q6H PRN (Reason: Nausea / Vomiting) Qty: 10 0RF ondansetron HCl 4 mg tablet 4 mg PO Q8H PRN (Reason: nausea and vomiting) Qty: 14 0RF telmisartan 80 mg tablet 80 mg PO DAILY Print Language: Romanian Stand Alone Forms: PCP List
[2024-06-04 08:38] LABS: BASOPHILS # (AUTO) 0.1 10^3/uL (0.0-0.1); BASOPHILS % (AUTO) 0.5 %; EOSINOPHILS % (AUTO) 0.2 %; HCT - HEMATOCRIT 40.4 % (42.0-52.0); HGB - HEMOGLOBIN 13.1 g/dL (14.0-18.0); LYMPHOCYTES # (AUTO) 0.9 10^3/uL (1.5-3.5); LYMPHOCYTES % (AUTO) 9.8 %; MEAN CORPUSCULAR HEMOGLOBIN 27.8 pg (27.0-31.0); MEAN CORPUSCULAR HGB CONC 32.4 g/dL (32.0-36.0); MEAN CORPUSCULAR VOLUME 85.8 fL (80.0-94.0); MEAN PLATELET VOLUME 9.7 fL (7.4-11.4); MONOCYTES # (AUTO) 0.3 10^3/uL (0.0-1.0); MONOCYTES % (AUTO) 2.9 %; NEUTROPHILS # (AUTO) 8.2 10^3/uL (1.5-6.6); NEUTROPHILS % (AUTO) 86.2 %; PLT - PLATELET COUNT 303 10^3/uL (130-450); RED BLOOD COUNT 4.71 10^6/uL (4.70-6.10); RED CELL DISTRIBUTION WIDTH 12.3 % (12.0-15.0); WHITE BLOOD COUNT 9.5 x10^3/uL (4.8-10.8)
[2024-06-04 08:47] LABS: MAGNESIUM 1.6 mg/dL (1.7-2.3)
[2024-06-04] MEDS: METOCLOPRAMIDE 10 MG/2 ML VIAL IVP STA (08:47)
[2024-06-04 08:52] LABS: VBG BASE EXCESS -1.9 mmol/L (-2 - +2); VBG HCO3 19.3 mmol/L (23-28); VBG PCO2 24.6 mmHg (41-51); VBG PH 7.512 (7.31-7.41); VBG PO2 21.3 mmHg (25-47)
[2024-06-04] MEDS: SODIUM CHLORIDE 0.9% 1,000 ML IV STA ×2 (08:52→11:46)
[2024-06-04 08:53] LABS: VBG OXYGEN SATURATION 48.2 % (60-80)
[2024-06-04 08:53] LABS: ALBUMIN 4.6 g/dL (3.2-5.5); ALBUMIN/GLOBULIN RATIO 1.4 (1.0-2.2); BILIRUBIN,TOTAL 1.7 mg/dL (0.2-1.0); CALCIUM 9.6 mg/dL (8.5-10.3); CREATININE 1.3 mg/dL (0.6-1.3); PHOSPHORUS 1.7 mg/dL (2.5-5.0); POTASSIUM 4.5 mmol/L (3.5-4.5); TOTAL PROTEIN 7.9 g/dL (6.4-8.9)
[2024-06-04] MEDS ORDERED: iohexoL-300 100 ML VIAL ONE (09:32)
[2024-06-04 09:35] LABS: INFLUENZA A- RESP PCR PANEL NOT DETECTED; INFLUENZA B - RESP PCR PANEL NOT DETECTED; RSV- RESP PCR PANEL NOT DETECTED; SARS-CoV-2 -RESP PCR PANEL NOT DETECTED
[2024-06-04] MEDS: NEUTRA-PHOS 250 MG TABLET PO ONE (09:49)
[2024-06-04] MEDS: MAGNESIUM OXIDE 400 MG TABLET PO ONE (09:49)
[2024-06-04 10:20] LABS: BILIRUBIN,URINE NEGATIVE (NEGATIVE); GLUCOSE, URINE (UA) NEGATIVE (NEGATIVE); KETONES,URINE (UA) 15 mg/dL (NEGATIVE); LEUKOCYTE ESTERASE, URINE NEGATIVE (NEGATIVE); NITRITE,URINE NEGATIVE (NEGATIVE); OCCULT BLOOD,URINE NEGATIVE (NEGATIVE); PROTEIN,URINE 30 mg/dL (NEGATIVE); UROBILINOGEN,URINE 0.2 (NORMAL) E.U./dL (NORMAL)
[2024-06-04 10:37] LABS: BACTERIA,URINE None Seen /HPF (None Seen); CLARITY,URINE CLEAR (CLEAR); RBC,URINE None Seen /HPF (0-5); SQUAMOUS EPITHELIAL CELL,UR NONE SEEN (<= Few); WBC,URINE 0-3 /HPF (0-3)
--- NOTE | 2024-06-04 10:39 | CT Report ---
PROCEDURE: CT Abdomen/Pelvis W INDICATIONS: lower abdominal pain, N/V CONTRAST: Omnni 300 100ml TECHNIQUE: After the administration of intravenous contrast, a CT scan of the abdomen and pelvis was performed. Images were recorded and evaluated at appropriate window settings. Reformats: coronal and sagittal. F or radiation dose reduction, the following was used: automated exposure control, adjustment of mA and /or kV according to patient size. COMPARISON: 12/19/2021 FINDINGS: Image quality: Diagnostic. Lower chest: Unremarkable. Liver: No solid mass. Gallbladder: No radiopaque stones or wall thickening. Biliary tree: No intrahepatic or extrahepatic dilation, accounting for age. Spleen: No splenomegaly. Pancreas: No pancreatic ductal dilation. Adrenals: No adrenal nodule. Kidneys and ureters: No hydronephrosis. No renal cystic lesion which requires follow up. No solid mas s. Punctate, nonobstructing right-sided nephrolithiasis. Stomach, bowel and peritoneum: No gastric or small bowel dilation. No abnormal wall thickening. No pa thologic free fluid. Diverticulosis without evidence of diverticulitis. Lymph nodes: No central or retroperitoneal adenopathy. Vessels: No infrarenal aortic aneurysm. Patent portal vein. PELVIS Reproductive organs: Unremarkable. Bladder: No abnormal wall thickening, accounting for underdistention. Pelvic lymph nodes: No pelvic adenopathy by size criteria. Bones: No aggressive osseous abnormality. Other: Fat within the inguinal canals. IMPRESSION: No acute abnormality. Punctate, nonobstructive right-sided nephrolithiasis. Normal appendix. No diver ticulitis. Moderate fat within the inguinal canals. Reviewed by: Garland Ocampo MD on 06/04/2024 10:37 AM PDT Approved by: Garland Ocampo MD on 06/04/2024 10:37 AM PDT Station ID: [id number]
--- NOTE | 2024-06-04 10:39 | XRAY Report ---
PROCEDURE: XR Chest 1V INDICATIONS: N/V, SOB TECHNIQUE: One view of the chest was acquired. COMPARISON: None. FINDINGS: Surgical changes and devices: None. Lungs and pleura: No pleural effusions or pneumothorax. Lungs are clear. Mediastinum: Mediastinal contours appear normal. Heart size is normal. Bones and chest wall: No suspicious bony lesions. Overlying soft tissues appear unremarkable. IMPRESSION: No acute cardiopulmonary process. Reviewed by: Garland Ocampo MD on 06/04/2024 10:38 AM PDT Approved by: Garland Ocampo MD on 06/04/2024 10:38 AM PDT Station ID: [id number]
[2024-06-04] MEDS: PROCHLORPERAZINE 10 MG/2 ML VIAL IVP STA (11:46)
[2024-06-04] MEDS: iohexoL-300 100 ML VIAL IVP ONE (12:51)
[2024-06-04] MEDS ORDERED: PROCHLORPERAZINE 10 MG/2 ML VIAL IVP PRN (13:34)
--- NOTE | 2024-06-04 13:52 | HISTORY & PHYSICAL EXAMINATION ---
Chief Complaint Chief Complaint Chief Complaint: nausea and vomiting History of Present Illness Admitted From Admitted From:: ED History Obtained From Records Reviewed: WIC visit 06/04, ED visit 06/02, PCP visit 05/08 History obtained from: patient History of Present Illness HPI Comment/Other: 68 yo male who was seen in the ED 2 days ago, [facility] earlier today and then returned to the ED today for nausea and vomiting. He became ill at home two days ago and presented today due to increasing abdominal pain and inability to tolerate fluids. He states he has been taking all of his home medications. has had 2 L IVF here in the ED and continues to feel very poorly. had a normal BM yesterday. Denies surgical hx. Last colonoscopy several years ago. Meds/Allgy Home Medications Ambulatory Orders Medication Instructions Recorded Confirmed rosuvastatin 5 mg tablet (Crestor) 40 mg PO DAILY 04/20/13 06/04/24 metformin 500 mg tablet 1,500 mg PO DAILY 01/13/18 06/04/24 exenatide microspheres 2 mg/0.65 2 mg SQ OAW 10/13/19 06/04/24 mL subcutaneous pen injector (ByCardiac Dimensionson) ibuprofen 800 mg tablet 800 mg PO Q8H PRN PAIN &/OR FEVER 12/04/20 06/04/24 #30 tabs ondansetron 4 mg disintegrating 4 mg translingual Q6H PRN Nausea / 12/04/20 06/04/24 tablet Vomiting #10 tabs oxycodone-acetaminophen 5 mg-325 1 - 2 ea PO Q6H PRN pain #14 tabs 12/04/20 06/04/24 mg tablet (Percocet) hydrocodone 5 mg-acetaminophen 325 1 - 2 tab PO Q6H PRN Pain #15 tabs 12/19/21 06/04/24 mg tablet ibuprofen 800 mg tablet 800 mg PO Q8H PRN PAIN &/OR FEVER 12/19/21 06/04/24 #14 tabs ondansetron 4 mg disintegrating 4 mg translingual Q6H PRN Nausea / 12/19/21 06/04/24 tablet Vomiting #10 tabs tamsulosin 0.4 mg capsule 0.4 mg PO DAILY #14 caps 12/19/21 06/04/24 ondansetron HCl 4 mg tablet 4 mg PO Q8H PRN nausea and 06/03/24 06/04/24 vomiting #14 tabs telmisartan 80 mg tablet 80 mg PO DAILY 06/04/24 06/04/24 Allergies Allergies Allergy/AdvReac Type Severity Reaction Status Date / Time No Known Drug Allergies Allergy Verified 06/04/24 08:25 [facility] Medical History Medical History (Updated 06/04/24 @ 14:21 by JASPREET Olea) Hypertension Hyperlipidemia Diabetes Surgical History Surgical History Hx of colonoscopy Social History Social History (Updated 06/04/24 @ 09:17 by Tianna Perez, RN, BSN) Smoking Status: Never smoker If you are a former smoker, when did you quit? (Date/Year): 6 yrs ago Do you vape?: No Living arrangement: At home Relationship: Do you feel safe in your home environment?: Yes Suffered physical, verbal, emotional, or financial abuse?: No History of Abuse: No ETOH Use: Beer Frequency: Occasional POLST Patient has POLST: No POLST Status: Full Code Review of Systems Status of ROS: 10 or more systems reviewed and unremarkable except as noted in history and below Constitutional Reports: Fatigue, Malaise and Poor appetite Eyes Denies: Pain or Blurry vision Ears, nose, mouth, and throat Denies: Ear pain, Nasal discharge, Swelling of lips/tongue or Throat pain Cardiovascular Reports: chest pain (mild, substernal); Denies: Irregular heart rate, palpitations or shortness of breath with exertion Respiratory Reports: Pain on inspiration; Denies: Shortness of breath Gastrointestinal Reports: Abdominal pain, Nausea and Vomiting; Denies: Abdominal distention, Coffee grounds in vomit, Excessive passing of gas, Change in bowel habits, Painful bowel movements, Melena or Blood in stool Genitourinary Reports: other (urinating normally and regularly); Denies: Painful urination Musculoskeletal Denies: Muscle aches Integumentary/Breast Denies: Rash Neurological Denies: Headache Endocrine Reports: Fatigue Hematologic/Lymphatic Denies: Anemia Prior Level of Functionality: independent. lives with , has a job working in [employer] where he is physically active Conclusion/Plan Problem List (1) Dehydration: Plan: Has been sick with undefined illness for 2 days now. not tolerating po fluids. has required 2 L iVF here in the ED and medications for nausea, yet still unrelieved. He remains tachycardic despite fluids. viral panels have been negative. he has urinated less than 100cc here in the ED. denies any symptoms of vertigo. Does not have any headache. We will admit him for supportive care. I have ordered NS at 150cc/hr overnight. I have ordered antiemetics, as well as a clear liquid diet. He may have more nutrition as he wishes. He does not have any history of abdominal surgery. His CT is negative for intraabdominal pathology. His WBC count in normal, as well as lactate. I have no suspicion for intraabdominal sepsis. Selected Entries 06/04/24 09:00 06/04/24 10:19 06/04/24 12:00 Pulse Rate 98 H 111 H 120 H 06/04/24 12:45 Pulse Rate 116 H (2) Vomiting: Plan: severe and intractable. He has been given Zofran and compazine in the ED. This has help slow down his vomiting, but he remains very nauseated. I will continue to give him Zofran, and compazine. I will add phenergan as well. Qualifiers: Nausea presence: with nausea Vomiting type: unspecified Qualified Code(s): R11.2 - Nausea with vomiting, unspecified (3) Abdominal pain: Plan: He has generalized mild tenderness. he has not had any BRBPR he has not had any coffee ground emesis. His CT is negative for intra abdominal pathology. Will continue to observe abdominal exam. Qualifiers: Abdominal location: unspecified location Qualified Code(s): R10.9 - Unspecified abdominal pain (4) Hyponatremia: Plan: This is mild. Will continue to monitor as we rehydrate this patient. Laboratory Tests 06/02/24 06/04/24 17:57 08:30 Sodium 129 L 133 L (5) Hypertension: Plan: at home he is on telmisartan 80mg daily. hypertensive in the ED. restart antihypertensives tomorrow. Selected Entries 06/04/24 08:23 06/04/24 09:00 06/04/24 10:19 Blood Pressure 160/88 H 158/96 H 167/93 H 06/04/24 12:00 06/04/24 12:45 Blood Pressure 158/97 H 176/96 H (6) Diabetes: Plan: takes Lantus 20u nightly at home. I will hold this for now. last A1C 7.6% recently in outpatient environment. has been on GLP 1 tx as well. some difficulty with availability of meds. metformin at home as well. 1500xr daily. I will hold all DM meds and treat with SSI for now. low dose. with NPO scheduled blood sugar checks. hopefully will improve with nausea and can escalate blood sugar management with escalating po intake. 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 Will resume when he is consistently taking po. Lab Results 06/04/24 08:30 06/04/24 08:30 Core Measures Anticipated LOS I expect patient to be DC'd or transferred within 96 hours.: Yes Issues Hospital Issues and Management Plan: dehydration with intractable n/v. admit for hydration and symptomatic treatment. workup not indicative of atypical presentation of AMI, PE or intra abdominal sepsis. DVT/VTE - Prophylaxis VTE/DVT Device ordered at admit?: Yes VTE/DVT Prophylaxis med ordered at admit?: Yes Exam Constitutional no apparent distress HENMT normocephalic and oropharynx normal Eyes PERRL and conjunctivae normal Neck/C-Spine visual inspection normal and trachea midline Lymph no lymphadenopathy noted Chest inspection of chest normal and palpation of chest normal Respiratory breath sounds equal bilaterally and normal respiratory effort Cardiovascular normal heart rate noted (tachycardic 110's to low 120's) and no murmur hypertensive Gastrointestinal abdomen normal to inspection, abdomen soft to palpation and nontender to palpation mild epigastric tenderness Genitourinary no CVA tenderness Extremities normal to inspection left 2nd toe there is dry ulceration, without draiange, distal to the DIP joint. There is a bounding DP pulse at bilateral feet. normal cap refill with the exception of tip of left second digit. Neurology paper products supervisor II-XII intact Psychiatry mental status grossly normal, oriented x3 and thought process normal Skin skin turgor normal appears flushed
[2024-06-04 14:00] LABS: AMPHETAMINE SCREEN,URINE NEGATIVE (NEGATIVE); BARBITURATE SCREEN,UR NEGATIVE (NEGATIVE); BENZODIAZEPINES SCREEN, URINE NEGATIVE (NEGATIVE); COCAINE SCREEN URINE NEGATIVE (NEGATIVE); METHADONE SCREEN, URINE NEGATIVE (NEGATIVE); METHAMPHETAMINES SCREEN, URINE NEGATIVE (NEGATIVE); OPIATE SCREEN, URINE NEGATIVE (NEGATIVE); OXYCODONE SCREEN, URINE NEGATIVE (NEGATIVE); THC CANNABINOID SCREEN, URINE NEGATIVE (NEGATIVE); TRICYCLIC ANTIDEPRESSANT,URINE NEGATIVE (NEGATIVE)
[2024-06-04 14:01] LABS: BUPRENORPHINE SCREEN, URINE NEGATIVE (NEGATIVE)
[2024-06-04] MEDS: SODIUM CHLORIDE 0.9% 1,000 ML IV SCH (14:21)
[2024-06-04 14:28] LABS: B. PARAPERTUSSIS- RESP PCR PAN NOT DETECTED; B. PERTUSSIS- RESP PCR PANEL NOT DETECTED; C. PNEUMONIAE- RESP PCR PANEL NOT DETECTED; CORONAVIRUS 229E-RESP PCR NOT DETECTED; CORONAVIRUS HKU1-RESP PCR NOT DETECTED; CORONAVIRUS NL63-RESP PCR NOT DETECTED; CORONAVIRUS OC43-RESP PCR NOT DETECTED; HUMAN METAPNEUMOVIRUS NOT DETECTED; INFLUENZA A- RESP PCR PANEL NOT DETECTED; INFLUENZA B - RESP PCR PANEL NOT DETECTED; M. PNEUMONIAE- RESP PCR PANEL NOT DETECTED; PARAINFLUENZA VIRUS 1 NOT DETECTED; PARAINFLUENZA VIRUS 2 NOT DETECTED; PARAINFLUENZA VIRUS 3 NOT DETECTED; PARAINFLUENZA VIRUS 4 NOT DETECTED; RHINOVIRUS/ENTEROVIRUS NOT DETECTED; RSV- RESP PCR PANEL NOT DETECTED; SARS-CoV-2 -RESP PCR PANEL NOT DETECTED
[2024-06-04] MEDS ORDERED: PROMETHAZINE INJ 25 MG in SODIUM CHLORIDE 0.9% 50 ML IV PRN (14:48)
[2024-06-04] MEDS ORDERED: PROMETHAZINE 25 MG/1 ML VIAL IM PRN (14:59)
[2024-06-04] MEDS: METOPROLOL 5 MG/5 ML VIAL IVP PRN (16:28)
[2024-06-04] MEDS: SODIUM CHLORIDE FLUSH 0.9% 10 ML SYRINGE IVP SCH (16:28)
[2024-06-04] MEDS: ONDANSETRON 4 MG/2 ML VIAL IVP PRN (17:04)
[2024-06-04] MEDS: SODIUM CHLORIDE FLUSH 0.9% 10 ML SYRINGE IVP PRN (17:04)
--- NOTE | 2024-06-04 17:22 | PHARMACY PROGRESS NOTE ---
Best Possible Medication History Admit Date and Time: 06/04/24 [id number] Processed by: Pharmacy Medications reviewed in ED?: Yes Medication History completed: Yes Patient Interview: Completed Secondary Source(s): Pharmacy records and Insurance records [facility] Statement: As the person ultimately responsible for medication therapy, providers are able to order a medication from an existing home medication list in [facility] via the "Reconcile Routine" prior to Confirmation of that medication by credit support counselor. Such practice is discouraged except when the physician, in their clinical judgment, deems that a medical need exists for a medication without regard to previous use.
[2024-06-04] MEDS: INSULIN REGULAR, HUMAN 300 UNIT/3 ML PEN SUBQ SCH (19:30)
[2024-06-04] MEDS: HEPARIN 5,000 UNIT/ML VIAL SUBQ SCH (21:04)
[2024-06-04] MEDS: FAMOTIDINE 20 MG/2 ML VIAL IVP SCH (21:04)
[2024-06-04] MEDS: METOPROLOL TARTRATE 25 MG TABLET PO SCH (21:07)
[2024-06-04] MEDS: INSULIN LISPRO 300 UNIT/3 ML PEN SUBQ SCH (21:07)
[2024-06-04 21:31] LABS: ESTIMATED AVERAGE GLUCOSE 169 mg/dL (70-100); HEMOGLOBIN A1c% 7.5 % (4.27-6.07)
[2024-06-05 05:41] LABS: BASOPHILS # (AUTO) 0.1 10^3/uL (0.0-0.1); EOSINOPHILS # (AUTO) 0.1 10^3/uL (0.0-0.7); HCT - HEMATOCRIT 33.8 % (42.0-52.0); HGB - HEMOGLOBIN 11.1 g/dL (14.0-18.0); LYMPHOCYTES # (AUTO) 1.7 10^3/uL (1.5-3.5); LYMPHOCYTES % (AUTO) 28.1 %; MEAN CORPUSCULAR HEMOGLOBIN 28.6 pg (27.0-31.0); MEAN CORPUSCULAR HGB CONC 32.8 g/dL (32.0-36.0); MEAN CORPUSCULAR VOLUME 87.1 fL (80.0-94.0); MEAN PLATELET VOLUME 9.5 fL (7.4-11.4); MONOCYTES # (AUTO) 0.5 10^3/uL (0.0-1.0); MONOCYTES % (AUTO) 8.7 %; NEUTROPHILS # (AUTO) 3.7 10^3/uL (1.5-6.6); PLT - PLATELET COUNT 213 10^3/uL (130-450); RED BLOOD COUNT 3.88 10^6/uL (4.70-6.10); RED CELL DISTRIBUTION WIDTH 12.3 % (12.0-15.0)
[2024-06-05 05:54] LABS: CALCIUM 8.1 mg/dL (8.5-10.3); POTASSIUM 3.9 mmol/L (3.5-4.5)
[2024-06-05 07:24] VITALS: O2SAT 95
[2024-06-05 07:52] LABS: ESTIMATED AVERAGE GLUCOSE 169 mg/dL (70-100); HEMOGLOBIN A1c% 7.5 % (4.27-6.07)
--- NOTE | 2024-06-05 09:30 | Discharge Summary ---
"Discharge Summary Admit Date: 06/04/24 Discharge Date: 06/05/24 Discharging Provider: Demetria Cunningham PA-C Primary Care Provider: Lew Godinez Code Status: Attempt Resuscitation DIAGNOSES Admission Diagnoses: Dehydration Vomiting Abdominal pain Hyponatremia Hypertension Diabetes Hyperlipidemia Discharge Diagnoses with Status of Each Condition: (1) Dehydration: sick with undefined illness for 2 days prior to admission. Symptoms were refractory to treatment and he was admitted for supportive care. He did well and felt better on the morning of hospital day 2. He tolerated a regular diet prior to discharge. His workup included a CT of the abdomen which was negative. He also had a normal white blood cell count and a normal lactate there was no suspicion for intra-abdominal sepsis. (2) Vomiting: severe and intractable. Refractory to treatment in the outpatient environment. He was admitted given IV antiemetics as well as supportive fluids and did well with resolution of his vomiting. (3) Abdominal pain: He has generalized mild tendernes on admission. This resolved. His CT of the abdomen pelvis was negative. (4) Hyponatremia: Minimal clinical significance. 06/02/24 06/04/24 17:57 08:30 Sodium 129 L 133 L (5) Hypertension Restart outpatient antihypertensives on discharge. (6) diabetes Resume Lantus 20 units nightly. This is his previous regimen. Resume GLP-1 treatment at home. Resume metformin at home. He was treated with sliding scale insulin in the hospital. (7) hyperlipidemia Resume home Crestor 20 mg daily. (8) diabetic foot Patient has a chronic wound at his left second toe. On exam this appears hard and dry. This is not a dry gangrene but there is definitely tissue here that likely would benefit from debridement. He may need partial amputation of his left second toe. I discussed this with the patient and have asked that he follow-up with his primary care provider regarding this. He was treated several weeks ago at the walk in clinic for this and finished a course of antibiotics. there was an X ray done at that time, and it was negative. HPI History of Present Illness: 68 yo male who was seen in the ED 2 days ago, [facility] earlier today and then returned to the ED today for nausea and vomiting. He became ill at home two days ago and presented today due to increasing abdominal pain and inability to tolerate fluids. He states he has been taking all of his home medications. has had 2 L IVF here in the ED and continues to feel very poorly. had a normal BM yesterday. Denies surgical hx. Last colonoscopy several years ago. CONSULTS | PROCEDURES Consultations: none Procedures: CT A/P: No acute abnormality. Punctate, nonobstructive right-sided nephrolithiasis. Normal appendix. No diverticulitis. Moderate fat within the inguinal canals. CXR: no acute cardiopulmonary process. HOSPITAL COURSE Hospital Course: Admitted through the emergency department with severe and intractable nausea and vomiting not responsive to medications. He had been seen in the emergency department several days prior and then returned with symptoms which were not controlled with medications. Several hours into his hospitalization his symptoms improved with IV hydration and medications. By the morning of discharge he was sitting up in bed was tolerating a regular diet and feeling like himself. He requested discharge home. ALLERGIES Allergies Allergy/AdvReac Type Severity Reaction Status Date / Time No Known Drug Allergies Allergy Verified 06/04/24 08:25 MEDICATIONS Ambulatory Orders Medication Instructions Recorded Confirmed aspirin 81 mg tablet,delayed 81 mg PO DAILY 06/04/24 06/05/24 release (Adult Aspirin Regimen) insulin glargine 100 unit/mL (3 20 unit subcut QPM 06/04/24 06/05/24 mL) subcutaneous pen (Lantus Solostar U-100 Insulin) metformin 500 mg tablet,extended 1,500 mg PO DAILY 06/04/24 06/05/24 release 24 hr rosuvastatin 40 mg tablet 40 mg PO DAILY 06/04/24 06/05/24 telmisartan 80 mg tablet 80 mg PO DAILY 06/04/24 06/05/24 tirzepatide 2.5 mg/0.5 mL 2.5 mg subcut .WEEKLY 06/04/24 06/05/24 subcutaneous pen injector (Mounjaro) doxycycline hyclate 100 mg capsule 100 mg PO BID 7 days #14 caps 06/05/24 06/05/24 PHYSICAL EXAM AT DISCHARGE General Appearance: positive No acute distress Eyes Bilateral: positive Normal inspection ENT: positive ENT inspection nml Neck: positive Nml inspection Respiratory: positive No respiratory distress and Breath sounds nml Cardiovascular: positive Regular rate & rhythm Abdomen: positive Non-tender Skin: positive Color nml Extremities: positive No pedal edema Neurologic/Psychiatric: positive Oriented x3 LABS 06/05/24 05:31 06/05/24 05:31 DIAGNOSTIC IMAGING Diagnostic Imaging Results Comments: CT abdomen pelvis negative for any intra-abdominal pathology. FOLLOW UP Follow Up: PCP Dr Godinez within 10 days. TIME SPENT Time Spent in Discharge (Minutes): 25 Discharge Plan Discharge Patient Disposition: 01 Home, Self Care Condition: Stable Medically Cleared Date:: 06/05/24 Prescriptions: Continued telmisartan 80 mg tablet 80 mg PO DAILY rosuvastatin 40 mg tablet 40 mg PO DAILY insulin glargine [Lantus Solostar U-100 Insulin] 100 unit/mL (3 mL) insulin pen 20 unit SUBCUT QPM Mounjaro 2.5 mg/0.5 mL pen injector 2.5 mg SUBCUT .WEEKLY Patient Comments: Inject 2.5 mg subcutaneously once a week Inject 2.5mg weekly metformin 500 mg tablet extended release 24 hr 1,500 mg PO DAILY aspirin [Adult Aspirin Regimen] 81 mg tablet,delayed release (DR/EC) 81 mg PO DAILY No Action doxycycline hyclate 100 mg capsule 100 mg PO BID 7 Days Qty: 14 0RF Diet: Diabetic Health Concerns: you came into the hospital with severe nausea and vomiting that was resistant to medications as an outpatient. With time you improved. Although we gave you medications to help with your nausea and vomiting, I think your body ultimately healed itself and you felt better. Your nausea and vomiting resolved and you have been able to tolerate a regular diet. When you go home it is fine for you to restart all of your regular diabetes and hypertension medications. It is also fine for you to restart your cholesterol medication. If you have nausea when you get home it is okay for you to take the Zofran that you were previously prescribed. I am not going to prescribe you any additional antinausea medication. Make sure to drink plenty of fluids. Your sodium was also low when you came into the hospital, however this resolved on its own as your nausea resolved and as you were able to take in fluids. Make sure to follow-up with Dr. Liang in the next week to 10 days When you follow-up with Dr. Liang, my biggest concern is your left second toe. While you do not have an active infection there, I think there is dry tissue that ultimately is going to have to be surgically removed. Care Plan Goals: Return to life is normal without nausea Take care of your diabetes Follow-up with Dr. Godinez regarding your toe, you may need a referral to a surgeon. Print Language: Yoruba Patient Instructions: ED Viral Syndrome, ED Nausea Vomiting Follow-up Care: Lew Godinez MD [Primary Care Provider] -"
== END 2024-06-05 10:55 | disposition home or self-care (01) ==
LOC: ED 08:13 → MS2 08:13
PROVIDERS: ADMIT Physician Assistant Medical; ATTEND Physician Assistant Medical
DX: E86.0 Dehydration; M19.072 Primary osteoarthritis, left ankle and foot; N20.0 Calculus of kidney; Q68.8 Other specified congenital musculoskeletal deformities; Z79.84 Long term (current) use of oral hypoglycemic drugs; Z79.4 Long term (current) use of insulin; M79.9 Soft tissue disorder, unspecified; R00.0 Tachycardia, unspecified; E87.1 Hypo-osmolality and hyponatremia; R11.2 Nausea with vomiting, unspecified; L97.529 Non-pressure chronic ulcer of other part of left foot with unspecified severity; E78.5 Hyperlipidemia, unspecified; I10 Essential (primary) hypertension; R10.9 Unspecified abdominal pain; E11.9 Type 2 diabetes mellitus without complications; Z87.891 Personal history of nicotine dependence; E11.621 Type 2 diabetes mellitus with foot ulcer